=== PATIENT | male | born 1975 | race Caucasian/White ===

== ENCOUNTER → 2019-11-23 12:25 | Outpatient (ROUT) | payer BC, SELFPAY ==
[2019-11-23 12:51] LABS: BUN Creatinine Ratio 18.6 (6-22); Blood Urea Nitrogen 13 mg/dL (9-20); Carbon Dioxide 30 mmol/L (22-32); Chloride 97 mmol/L (98-107); Estimated Glomerular Filt Rate > 60.0 mL/min (>60); Glucose 146 mg/dL (70-100); HEMOLYSIS < 15 (0-50); Potassium 4.4 mmol/L (3.4-5.1); Sodium 137 mmol/L (137-145)
== END ==
PROVIDERS: PCP Internal Medicine; Visit Provider Internal Medicine
DX: E11.9 Type 2 diabetes mellitus without complications (principal)
CPT/HCPCS: 80048

== ENCOUNTER 2020-02-07 16:09 | Emergency (ER) | payer SELFPAY ==
[2020-02-07 16:17] VITALS: BP 156/83; PULSE 90; RESP 14; TEMP 36.3; O2SAT 97
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
--- NOTE | 2020-02-07 16:51 | ED.TRAUMA ---
HPI - Trauma <Taniya Ashby PA-C - Last Filed: 02/07/20 21:16> General Chief Complaint: Trauma Stated Complaint: FALL NO STOP BLEEDING Time Seen by Provider: 02/07/20 16:15 Source: patient Mode of arrival: Ambulatory History of Present Illness HPI narrative: Patient is a pale, obese 44-year-old with obvious bruising to his face around his eyes swollen nose, and a large blood clot protruding from his left nostril as well as some old bruising on his right arm. Presents the emergency department POV, brought in by his . Complained of continued nosebleed, after a fall last night at home. He states that he her while he is lying back slightly flat, he still feels like there is a little bit of blood going down his throat. He felt nauseous on the way to the emergency department in a vehicle, and felt a little nauseous earlier today as well. He fell last night at home when he was stepping up onto a step into their bedroom area. He denies any prodrome of dizziness, palpitations, feeling like he was going to pass out. He fell onto carpet over hardwood floor, hitting the center of his face including his mouth and nose. He claims he has no other injuries, and does not have pain anywhere else, he says he partially use his hands to catch herself but pretty much ?my face took all of the force?. He proceeded to go to bed, despite having an active nosebleed, his helped him with towels and they tried to stop the bleeding last night, however he woke up this morning and his bedsheets ?looked like a murder scene?. He states that he stayed in bed all afternoon because ?every time I sat up to drink water or do anything, I felt very dizzy?. His told him that if he was not feeling better and the bleeding has not stopped by 4:00 p.m. today that she was going to drive him to the emergency department. Patient is a poor historian, however he does note a history of diabetes. Patient reports he has been in his normal state of health recently and was fine until last night when he fell and sustained this injury with nosebleed. 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 He denies any C-spine pain, headaches, vision changes, he continued severe bleeding. MD complaint: fall, injury and other (nosebleed) Onset (ago): hour(s) (18) Loss of Consciousness: no Location: face (Nose, mouth, orbits) Severity: moderate Associated symptoms: nausea, weakness, dizziness (Since this morning after bleeding from his nose) and epistaxis Treatments prior to arrival: cold therapy, dressings and other (Holding pressure on his nose.) Related Data Home Medications Medication Instructions Recorded Confirmed carvedilol [Coreg] 25 mg PO BID #0 07/01/12 amlodipine 10 mg PO HS #0 08/04/16 aspirin 81 mg PO QDAY #30 tab 08/04/16 fluticasone propion-salmeterol 1 puff INH BID #14 dose 08/04/16 [Advair Diskus] lisinopril-hydrochlorothiazide 1 tab PO QDAY #0 tab 08/04/16 sildenafil [Viagra] 50 mg PO PRN PRN #0 tab 08/04/16 Previous Rx's Medication Instructions Recorded sitagliptin [Januvia] 100 mg PO QDAY #30 tab 08/06/16 cephalexin [Keflex] 500 mg PO QID 7 Days #28 cap NS 02/07/20 hydrocodone-acetaminophen [[place]] 1 tab PO Q6H PRN #10 tab NS 02/07/20 Allergies Allergy/AdvReac Type Severity Reaction Status Date / Time No Known Drug Allergies Allergy Verified 02/07/20 16:53 Review of Systems <Taniya Ashby PA-C - Last Filed: 02/07/20 21:16> Review of Systems ROS Unobtainable: All systems reviewed & are unremarkable except as noted in HPI and below Constitutional Constitutional: Reports as per HPI and Denies headache(s) Eyes Eyes: Denies blurry vision, Denies change in vision, Denies loss of vision and Denies eye pain ENT Ears, Nose, Mouth, and Throat: Reports as per HPI, Denies dental pain, Denies dysphagia, Reports dizziness, Denies ear discharge, Denies otalgia, Reports facial pain, Denies headache(s), Reports lip swelling, Reports nasal trauma and Denies neck pain Cardiovascular Cardiovascular: Reports system reviewed and no additional complaints, except as docu, Denies chest pain and Denies dyspnea Respiratory Respiratory: Reports system reviewed and no additional complaints, except as docu and Denies dyspnea Gastrointestinal Gastrointestinal: Reports system reviewed and no additional complaints, except as docu and Denies dysphagia Musculoskeletal Musculoskeletal: Reports system reviewed and no additional complaints, except as docu, Denies abnormal gait, Denies arthralgias, Denies joint swelling, Denies limited range of motion, Denies neck pain and Denies numbness Integumentary/Breasts Skin/Breast: Reports system reviewed and no additional complaints, except as docu Neurologic Neurologic: Denies abnormal gait, Reports dizziness, Denies headache(s), Denies loss of vision and Denies numbness Psychiatric Psychiatric: Reports system reviewed and no additional complaints, except as docu Hematologic/Lymphatic Hematologic/Lymphatic: Reports system reviewed and no additional complaints, except as docu Comments: Reports no known history of easy bleeding or bruising. Allergic/Immunologic Allergic/Immunologic: Reports lip swelling Patient History <Taniya Ashby PA-C - Last Filed: 02/07/20 21:16> Medical History (Updated 02/08/20 @ 00:46 by Zaida Sood RN) Acute anterior epistaxis (Acute) Diabetes (Acute) Fracture closed, nasal bone (Acute) Hypertension (Acute) Social History Smoking Status: Never smoker Smoking Status: Never smoker Substance Use Type: does not use Exam <DEMOND Motley Last Filed: 02/07/20 21:16> Initial Vital Signs Initial Vital Signs: Vital Signs Temperature 97.4 F L 02/07/20 16:17 Pulse Rate 90 02/07/20 16:17 Respiratory Rate 14 02/07/20 16:17 Blood Pressure 156/83 H 02/07/20 16:17 Pulse Oximetry 97 02/07/20 16:17 Const General: cooperative, No comfortable, in distress and ill appearing Nutritional Appearance: obese Orientation: Orientation [facility] Head: hematoma, laceration and raccoon eyes (mild periorbital ecchymosis bilaterally) Ears: hearing grossly normal bilaterally, external ears normal, TM's normal bilaterally and EAC's normal Nose: No external nose normal (swelling), No nares normal (large clot protruding from left nare), epistaxis, external nose abnormal, No foreign body in naris, mucous membranes and turbinates abnormal, nasal discharge and No TMJ nontender Face and sinus: sinuses nontender Mouth: No oral mucosae normal (interior lip mucosa superior and inferior with large blood blisters. ), lip normal, tongue normal, moist mucous membranes, mucous membranes abnormal, mouth trauma, oral mucosa abnormal, No tongue abnormal, No abnormal TMJ, No trismus and No restricted motion Teeth and gingiva: poor dentition Throat: posterior oropharynx normal (some blood visible in posterior pharynx) Eyes General: appearance normal, both eyes and all related structures Visual Rosa: normal visual rosa by confrontation Alignment and Position: alignment normal and position normal Periorbital: periorbital findings abnormal Eyelids: eyelids normal Conjunctivae: conjunctivae normal Sclera: sclerae normal Cornea: corneas normal Pupils: PERRL and pupil size (4) bilaterally Direct ophthalmoscopy: normal light reflex Neck Neck: normal visual inspection and full ROM Chest Chest: normal inspection of the chest and normal palpation of entire chest wall Resp Effort & Inspection: normal respiratory effort and able to speak in complete sentences Auscultation: clear to auscultation bilaterally and other (upper airway sounds referred) Cardio Rate: tachycardic Rhythm: regular rhythm Heart Sounds: S1 normal and S2 normal GI Inspection: normal to inspection and obesity Palpation: soft Auscultation: normal bowel sounds Back/Spine/Pelvis Cervical Spine: cervical ROM normal, No cervical muscular tenderness, No pain with cervical ROM, No cervical spasm, No cervical spinal tenderness and No step off deformity Thoracic/Lumbar Spine: thoracic and lumbar spine normal to inspection Skin General: ecchymosis (right forarm and right upper arm, old bruises) Lesions: no lesions and lesion noted Trauma: laceration (stellate laceration bridge of nose <5mm, closed) Hair: normal Nails: normal Neuro General: alert, awake, oriented x3, gait normal and moves all extremities Cognition: normal cognition Speech: speech normal Gait: normal gait Motor: muscle tone normal throughout Sensory Exam: no sensory deficits noted Extrem General: normal to inspection Right upper extremity: normal to inspection Left upper extremity: normal to inspection Right lower extremity: normal to inspection Left lower extremity: normal to inspection Psych Appearance: grossly normal Mental Status: mental status grossly normal <Molly Whitlock, DO - Last Filed: 02/08/20 07:18> Initial Vital Signs Initial Vital Signs: Vital Signs Temperature 97.4 F L 02/07/20 16:17 Pulse Rate 90 02/07/20 16:17 Respiratory Rate 14 02/07/20 16:17 Blood Pressure 156/83 H 02/07/20 16:17 Pulse Oximetry 97 02/07/20 16:17 Procedures <DEMOND Motley Last Filed: 02/07/20 21:16> Epistaxis Control Time Out Performed: Yes Nostril: left and bilateral Nose Prepped With: lidocaine and oxymetazoline Direct Inspection: yes Clots Removed by: suction and manually Cautery Used: none Device Inserted: nasal tampon Device Size: 4 Patient Tolerated Procedure: well and no complications Complications: continued epistaxis (Continued epistaxis after placement of the initial) on the affected left side, as well as extrusion of the rhino rocket. To new rhino rockets were placed bilaterally after the initial 1 was removed, per recommendation of ENT.) and pain Scores <DEMOND Motley Last Filed: 02/07/20 21:16> GCS Arley coma scale eye opening: Spontaneous [place] coma scale verbal response: Orientated [place] coma scale motor response: Obey commands Arley coma scale total score: 15 Nexus Score for C-Spine Focal Neurologic deficit present: No Midline spinal tenderness present: No Altered level of conciousness present: No Intoxication present: No Distracting Injury Present: Yes Nexus Criteria for C-spine: 1 Course <DEMOND Motley Last Filed: 02/07/20 21:16> Orders Ordered: Discontinued Medications Hydrocodone Bitart/Acetaminophen ([place] 10/325) 1 tab PO NOW ONE Stop: 02/07/20 18:43 Hydrocodone Bitart/Acetaminophen ([place] 5/325) 2 tab PO NOW ONE Stop: 02/07/20 18:57 Last Admin: 02/07/20 19:13 Dose: 2 tab Documented by: AARON Hydrocodone Bitart/Acetaminophen (Vicodin 5/325 Prepack) 1 bottle MISC SEEINSTR ONE Stop: 02/07/20 20:45 Last Admin: 02/07/20 21:12 Dose: 1 bottle Documented by: JORDEN Cefazolin Sodium (Keflex 250 Mg Prepack) 1 bottle MISC SEEINSTR ONE Stop: 02/07/20 20:45 Last Admin: 02/07/20 21:12 Dose: 500 mg Documented by: JORDEN Cephalexin HCl (Keflex) 500 mg PO NOW ONE Stop: 02/07/20 20:04 Last Admin: 02/07/20 20:19 Dose: 500 mg Documented by: JORDEN Diphtheria/Tetanus/Acell Pertussis (Adacel) 0.5 ml IM .ONCE ONE Stop: 02/07/20 16:56 Last Admin: 02/07/20 16:57 Dose: 0.5 ml Documented by: DAVID Sodium Chloride (Normal Saline 0.9%) 1,000 mls @ 1,000 mls/hr IV BOLUS ONE Stop: 02/07/20 20:44 Last Infusion: 02/07/20 21:12 Dose: 0 mls/hr Documented by: Admin: 02/07/20 19:56 Dose: 1,000 mls/hr Documented by: JORDEN Lidocaine/Sodium Bicarbonate (Buffered Lidocaine 10 Ml Syr) 10 ml INJ NOW ONE Stop: 02/07/20 17:16 Last Admin: 02/07/20 18:08 Dose: 10 ml Documented by: AARON Lidocaine/Sodium Bicarbonate (Buffered Lidocaine 10 Ml Syr) 10 ml INJ NOW ONE Stop: 02/07/20 18:25 Last Admin: 02/07/20 18:37 Dose: 10 ml Documented by: JULIAN Ondansetron HCl (Zofran Odt Prepack) 1 bottle [facility] [place], [place] SEEINSTR ONE Stop: 02/07/20 20:45 Last Admin: 02/07/20 21:12 Dose: 1 bottle Documented by: JORDEN Oxymetazoline HCl (Afrin) 2 sprays NASAL NOW ONE Stop: 02/07/20 17:13 Last Admin: 02/07/20 18:07 Dose: 2 sprays Documented by: AARON Tranexamic Acid (Cyklokapron) 1,000 mg MM NOW ONE Stop: 02/07/20 17:13 Last Admin: 02/07/20 18:08 Dose: 1,000 mg Documented by: AARON Tranexamic Acid (Cyklokapron) 1,000 mg MM NOW ONE Stop: 02/07/20 18:25 Last Admin: 02/07/20 18:37 Dose: 1,000 mg Documented by: JULIAN Reevaluation(s) Reevaluation #1: Patient re-evaluated he still has about 7/10 pain in his face. Based on minimal displacement fractures of the septum and nasal bone on the left, felt it was safe and appropriate to remove the blood clot and use Afrin as well as a rhino rocket infused with Tx very and lidocaine to attempt to get better control of his continued slow bleeding. Large 5cm blood clot removed with manual traction and suction device, without significant bleeding. 4 sprays of Afrin placed in the left nare. 4.5 cm rhinorocket anterior infused with lidocaine and 500mg TXA prior to insertion. Rhinorocket placed by Dr. Whitlock, See procedure note for further. Time: 18:01 Reevaluation #3: On re-evaluation the rhino rocket is now beginning to come out of his nose to the point where it will have to be placed again. He continues to have a slow light stream of blood from the left nare after placement. Spoke with Dr. bowens ENT, who advises that because he does have a septal fracture is possible that some of his bleeding is due to this fracture and it may be advisable to place a rhino rockets bilaterally to control the bleeding plan to do so, with additional TXA and lidocaine Time: 18:27 Additional Reevaluation(s): See procedure note for placement of bilateral rhino rockets. Patient is still reporting pain, he says it is slightly worse now he has the bilateral rhino rockets in place, have ordered [place] for him, he says he feels he is able to swallow just fine. I plan to discharge him with this prescription as well. At this point in time he states he has no sensation of blood running down the back of his throat anymore, and there is no bleeding continuing anteriorly to come out of either nare. The left near had the original rhino rocket removed after deflating the balloon as it was nearly extruded on its own, a new rhino rocket was placed with inflation to 12 cc of air of the cuff and is staying in place on the left the affected side with the epistaxis. This was staffed in the remaining TXA and lidocaine solution from the previous placement and was placed by myself. The right nare also had placement of a anterior 4.5 cm rhino rocket per the suggestion of ENT, this was also infused with approximately 250 mg at BT x-ray mixed with 3-4 mL of lidocaine, this was placed by nurse practitioner Molly Valenzuela. It also appears to have good placement and there is no bleeding of the right naris. Consultations Consultation #1: Spoke with Dr. Bowens, ENT who advises patient will likely need bilateral rhino rockets given he has a septal mildly displaced fracture, which may be contributing to his continued slow bleeding. He also advised a rhino rocket should remain in place for at least 72 hours, and he will follow-up with the patient likely on this . Time: 18:18 Vital Signs Vital signs: Vital Signs - 8 hr 02/07/20 16:17 02/07/20 18:47 02/07/20 19:57 Temperature 97.4 F L Pulse Rate 90 112 H 117 H Respiratory Rate 14 23 18 Blood Pressure 156/83 H Blood Pressure [Left Arm] 129/76 129/76 Pulse Oximetry 97 97 99 <Molly Whitlock, DO - Last Filed: 02/08/20 07:18> Orders Ordered: Discontinued Medications Hydrocodone Bitart/Acetaminophen ([place] 10/325) 1 tab PO NOW ONE Stop: 02/07/20 18:43 Hydrocodone Bitart/Acetaminophen ([place] 5/325) 2 tab PO NOW ONE Stop: 02/07/20 18:57 Last Admin: 02/07/20 19:13 Dose: 2 tab Documented by: BTONER Hydrocodone Bitart/Acetaminophen (Vicodin 5/325 Prepack) 1 bottle MISC SEEINSTR ONE Stop: 02/07/20 20:45 Last Admin: 02/07/20 21:12 Dose: 1 bottle Documented by: JORDEN Cefazolin Sodium (Keflex 250 Mg Prepack) 1 bottle MISC SEEINSTR ONE Stop: 02/07/20 20:45 Last Admin: 02/07/20 21:12 Dose: 500 mg Documented by: JORDEN Cephalexin HCl (Keflex) 500 mg PO NOW ONE Stop: 02/07/20 20:04 Last Admin: 02/07/20 20:19 Dose: 500 mg Documented by: JORDEN Diphtheria/Tetanus/Acell Pertussis (Adacel) 0.5 ml IM .ONCE ONE Stop: 02/07/20 16:56 Last Admin: 02/07/20 16:57 Dose: 0.5 ml Documented by: DAVID Sodium Chloride (Normal Saline 0.9%) 1,000 mls @ 1,000 mls/hr IV BOLUS ONE Stop: 02/07/20 20:44 Last Infusion: 02/07/20 21:12 Dose: 0 mls/hr Documented by: Admin: 02/07/20 19:56 Dose: 1,000 mls/hr Documented by: JORDEN Lidocaine/Sodium Bicarbonate (Buffered Lidocaine 10 Ml Syr) 10 ml INJ NOW ONE Stop: 02/07/20 17:16 Last Admin: 02/07/20 18:08 Dose: 10 ml Documented by: AARON Lidocaine/Sodium Bicarbonate (Buffered Lidocaine 10 Ml Syr) 10 ml INJ NOW ONE Stop: 02/07/20 18:25 Last Admin: 02/07/20 18:37 Dose: 10 ml Documented by: JULIAN Ondansetron HCl (Zofran Odt Prepack) 1 bottle MISC SEEINSTR ONE Stop: 02/07/20 20:45 Last Admin: 02/07/20 21:12 Dose: 1 bottle Documented by: JORDEN Oxymetazoline HCl (Afrin) 2 sprays NASAL NOW ONE Stop: 02/07/20 17:13 Last Admin: 02/07/20 18:07 Dose: 2 sprays Documented by: AARON Tranexamic Acid (Cyklokapron) 1,000 mg MM NOW ONE Stop: 02/07/20 17:13 Last Admin: 02/07/20 18:08 Dose: 1,000 mg Documented by: AARON Tranexamic Acid (Cyklokapron) 1,000 mg MM NOW ONE Stop: 02/07/20 18:25 Last Admin: 02/07/20 18:37 Dose: 1,000 mg Documented by: JULIAN Vital Signs Vital signs: Vital Signs - 8 hr 02/07/20 16:17 02/07/20 18:47 02/07/20 19:57 Temperature 97.4 F L Pulse Rate 90 112 H 117 H Respiratory Rate 14 23 18 Blood Pressure 156/83 H Blood Pressure [Left Arm] 129/76 129/76 Pulse Oximetry 97 97 99 MDM - Trauma <Taniya Symone, PA-C - Last Filed: 02/07/20 21:16> Lab Data Attestation: I reviewed the patient's lab results. Lab results narrative: H&H is 10.6 and 32.4. He has an elevated white count to 14.4 elevated glucose to 242, Result diagrams: 02/07/20 19:38 02/07/20 16:35 Labs: Lab Results 02/07/20 02/07/20 02/07/20 Range/Units 16:35 16:35 16:35 WBC 14.4 H (4.5-11.0) X10^3/uL RBC 3.03 L (4.5-5.9) X10^6/uL Hgb 10.6 L (13.5-17.5) g/dL Hct 32.4 L (41-53) % MCV 106.9 H (80-100) fL MCH 34.9 H (26-34) PG MCHC 32.7 (30-36) % RDW 17.4 H (11.6-14.8) % Plt Count 260 (150-400) X10^3/uL Neut % (Auto) 75.1 H (50-75) % Lymph % (Auto) 14.1 L (25-40) % [place] % (Auto) 9.4 (3-14) % Eos % (Auto) 0.1 L (2-4) % Baso % (Auto) 1.3 (0-2) % Neut # (Auto) 45500 H (6766-0341) /uL Lymph # (Auto) 2000 (1610-6276) /uL [place] # (Auto) 1300 H (0-900) /uL Eos # (Auto) 0 (0-450) /uL Baso # (Auto) 200 H (0-100) /uL APTT 30 (26.4-36.2) SECONDS Sodium 136 L (137-145) mmol/L Potassium 4.6 (3.4-5.1) mmol/L Chloride 100 (98-107) mmol/L Carbon Dioxide 25 (22-32) mmol/L BUN 38 H (9-20) mg/dL Creatinine 0.73 (0.66-1.25) mg/dL Estimated GFR > 60.0 (>60) mL/min BUN/Creatinine Ratio 52.1 H (6-22) Glucose 242 H (70-100) mg/dL Calcium 8.9 (8.4-10.2) mg/dL Total Bilirubin 0.8 (0.2-1.3) mg/dL AST 70 H (17-59) IU/L ALT 115 H (<50) IU/L Alkaline Phosphatase 65 (38-126) U/L Total Protein 7.1 (6.3-8.2) g/dL Albumin 3.5 (3.5-5.0) g/dL Globulin 3.6 (1.7-4.1) g/dL Albumin/Globulin Ratio 1.0 (1.0-2.8) Ethyl Alcohol < 10 ( - 10) mg/dL Blood Type Antibody Screen 02/07/20 02/07/20 Range/Units 16:35 19:38 WBC 14.6 H (4.5-11.0) X10^3/uL RBC 2.90 L (4.5-5.9) X10^6/uL Hgb 10.2 L (13.5-17.5) g/dL Hct 30.8 L (41-53) % MCV 106.5 H (80-100) fL MCH 35.1 H (26-34) PG MCHC 32.9 (30-36) % RDW 17.0 H (11.6-14.8) % Plt Count 247 (150-400) X10^3/uL Neut % (Auto) 77.4 H (50-75) % Lymph % (Auto) 14.6 L (25-40) % [place] % (Auto) 7.6 (3-14) % Eos % (Auto) 0.1 L (2-4) % Baso % (Auto) 0.3 (0-2) % Neut # (Auto) 18774 H (8857-3731) /uL Lymph # (Auto) 2100 (5528-9107) /uL [place] # (Auto) 1100 H (0-900) /uL Eos # (Auto) 0 (0-450) /uL Baso # (Auto) 0 (0-100) /uL APTT (26.4-36.2) SECONDS Sodium (137-145) mmol/L Potassium (3.4-5.1) mmol/L Chloride (98-107) mmol/L Carbon Dioxide (22-32) mmol/L BUN (9-20) mg/dL Creatinine (0.66-1.25) mg/dL Estimated GFR (>60) mL/min BUN/Creatinine Ratio (6-22) Glucose (70-100) mg/dL Calcium (8.4-10.2) mg/dL Total Bilirubin (0.2-1.3) mg/dL AST (17-59) IU/L ALT (<50) IU/L Alkaline Phosphatase (38-126) U/L Total Protein (6.3-8.2) g/dL Albumin (3.5-5.0) g/dL Globulin (1.7-4.1) g/dL Albumin/Globulin Ratio (1.0-2.8) Ethyl Alcohol ( - 10) mg/dL Blood Type O Positive Antibody Screen Negative Imaging Data CT scan - head: Radiologist's Impression: [address] [address] [address] Scan Report Signed Patient: Leonidas Oreilly JMR#: [id number] : 1975Acct:[id number] Age/Sex: 44 / MDate of Service: 02/07/20 Loc: ED Accession Number: [id number] Procedure: CT head/brain wo con Ordering Provider: Taniya Ashby P.A-C PROCEDURE: CT HEAD/BRAIN WO CON INDICATIONS: Trauma TECHNIQUE: Noncontrast 4.5 mm thick angled axial sections acquired from the foramen magnum to the vertex, with coronal and sagittal reformats. For radiation dose reduction, the following was used: automated exposure control, adjustment of mA and/or kV according to patient size. COMPARISON: None. FINDINGS: Image quality: Excellent. CSF spaces: Basal cisterns are patent. No extra-axial fluid collections. Ventricles are normal in size and shape. Brain: No midline shift. No intracranial masses or hemorrhage. [place]-white matter interface is normal. Skull and face: Calvarium and visualized facial bones are intact, without suspicious lesions. Sinuses: There is likely displaced nasal bone fracture which is only partially characterized. High density fluid and gas is present within the bilateral maxillary sinuses and the ethmoid air cells. Fluid is layered within the sphenoid sinuses. The frontal sinuses and mastoid air cells are clear. IMPRESSION: 1. No acute intracranial finding. 2. Probable nasal bone fracture with high density fluid and gas within the paranasal sinuses. Findings suggest the presence of blood within the paranasal sinuses. Dictated by: Angelia Seay M.D. on 02/07/2020 at 16:57 Approved by: Angelia Seay M.D. on 02/07/2020 at 16:59 CT Cervical spine w/o contrast: Radiologist's Impression: [address] [address] [address] Scan Report Signed Patient: Leonidas Oreilly JMR#: [id number] : 1975Acct:[id number] Age/Sex: 44 / MDate of Service: 02/07/20 Loc: ED Accession Number: [id number] Procedure: CT cervical spine wo con Ordering Provider: Taniya Ashby P.A-C PROCEDURE: CT CERVICAL SPINE WO CON INDICATIONS: Trauma TECHNIQUE: Noncontrast 3 mm thick sections acquired from the skull base to the T4 level. Sagittal and coronal reformats were then constructed. For radiation dose reduction, the following was used: automated exposure control, adjustment of mA and/or kV according to patient size. COMPARISON: None. FINDINGS: Image quality: Excellent. Bones: No fractures or dislocations. Visualized superior ribs are intact. Fluid and gas is present within the nasopharynx and the sphenoid sinuses. Soft tissues: Prevertebral soft tissues are normal in thickness. No paravertebral hematomas. No apical pneumothoraces. IMPRESSION: 1. No acute cervical spine injury. 2. Fluid and gas within the paranasal sinuses suggesting the presence of maxillofacial trauma. Dictated by: Angelia Seay M.D. on 02/07/2020 at 17:00 Approved by: Angelia Seay M.D. on 02/07/2020 at 17:[address]: Attestation: I personally reviewed and interpreted this imaging study as follows: My Impression: Agree with radiologist's interpretation, mildly displaced nasal bone fracture on the left and mildly displaced nasal septum fracture Radiologist's Impression: [address] [address] [address] Scan Report Signed Patient: Leonidas Oreilly JMR#: [id number] : 1975Acct:[id number] Age/Sex: 44 / MDate of Service: 02/07/20 Loc: ED Accession Number: [id number] Procedure: CT facial bones wo con Ordering Provider: Taniya Ashby P.A-C PROCEDURE: CT FACIAL BONES WO CON INDICATIONS: GROUND LEVEL FALL YESTERDAY, FACE HURTS TECHNIQUE: Noncontrast 2.5 mm thick axial images acquired from the mandible through the frontal sinuses, with coronal and sagittal reformatting. For radiation dose reduction, the following was used: automated exposure control, adjustment of mA and/or kV according to patient size. COMPARISON: None. FINDINGS: Image quality: Motion artifact somewhat limits evaluation. Bones and teeth: There is likely a minimally displaced left nasal bone fracture. There is a minimally displaced fracture of the nasal septum (series 10/image 80). The orbital nesbitt are intact. Visualized portions of the mandible demonstrate no fractures or subluxation. Zygomatic arches are intact. Pterygoid plates are intact. Visualized portions of the skull base and auditory canals are intact. Sinuses: High-density fluid and gas is present within the bilateral maxillary sinuses, the ethmoid air cells, the nasopharynx, and the sphenoid sinuses. Trace fluid and gas is also present within the frontal sinuses. The visualized mastoid air cells are clear. Soft tissues: No edema, masses, or fluid collections. No enlarged lymph nodes. No soft tissue lacerations or debris. Vascular: Visualized vascular structures appear normal in the absence of contrast. Bony vascular foramina and canals are intact. IMPRESSION: 1. Displaced nasal bone fracture and nasal septum fracture with probable blood within the paranasal sinuses as described above. Dictated by: Angelia Seay M.D. on 02/07/2020 at 17:02 Approved by: Angelia Seay M.D. on 02/07/2020 at 17:06 [facility] Narrative Medical decision making narrative: This is an obese 44-year-old male with a history of diabetes, who presents with epistaxis that began last night still uncontrolled this afternoon, 2nd to a fall. Imaging of C-spine, facial bones, and head revealed a moderately displaced fracture of the left nasal bone, and a mild fracture of the nasal septum. No other no other injuries were found on exam except for some old bruising on his right arm. H&H as above, recheck dropped 0.4 points for hemoglobin. He was given normal saline bolus in the ED prior to discharge. Bleeding appeared to be well controlled after placement of bilateral anterior nasal packing with afrin and TXA. Patient will follow-up with ENT in the next 2-3 days for removal of the packing and re-evaluation. He agrees with this plan, and we have reviewed emergency return precautions. <Molly Myke Whitlock, DO - Last Filed: 02/08/20 07:18> Lab Data Attestation: I reviewed the patient's lab results. Labs: Lab Results 02/07/20 02/07/20 02/07/20 Range/Units 16:35 16:35 16:35 WBC 14.4 H (4.5-11.0) X10^3/uL RBC 3.03 L (4.5-5.9) X10^6/uL Hgb 10.6 L (13.5-17.5) g/dL Hct 32.4 L (41-53) % MCV 106.9 H (80-100) fL MCH 34.9 H (26-34) PG MCHC 32.7 (30-36) % RDW 17.4 H (11.6-14.8) % Plt Count 260 (150-400) X10^3/uL Neut % (Auto) 75.1 H (50-75) % Lymph % (Auto) 14.1 L (25-40) % [place] % (Auto) 9.4 (3-14) % Eos % (Auto) 0.1 L (2-4) % Baso % (Auto) 1.3 (0-2) % Neut # (Auto) 20920 H (2716-8480) /uL Lymph # (Auto) 2000 (7022-1297) /uL [place] # (Auto) 1300 H (0-900) /uL Eos # (Auto) 0 (0-450) /uL Baso # (Auto) 200 H (0-100) /uL APTT 30 (26.4-36.2) SECONDS Sodium 136 L (137-145) mmol/L Potassium 4.6 (3.4-5.1) mmol/L Chloride 100 (98-107) mmol/L Carbon Dioxide 25 (22-32) mmol/L BUN 38 H (9-20) mg/dL Creatinine 0.73 (0.66-1.25) mg/dL Estimated GFR > 60.0 (>60) mL/min BUN/Creatinine Ratio 52.1 H (6-22) Glucose 242 H (70-100) mg/dL Calcium 8.9 (8.4-10.2) mg/dL Total Bilirubin 0.8 (0.2-1.3) mg/dL AST 70 H (17-59) IU/L ALT 115 H (<50) IU/L Alkaline Phosphatase 65 (38-126) U/L Total Protein 7.1 (6.3-8.2) g/dL Albumin 3.5 (3.5-5.0) g/dL Globulin 3.6 (1.7-4.1) g/dL Albumin/Globulin Ratio 1.0 (1.0-2.8) Ethyl Alcohol < 10 ( - 10) mg/dL Blood Type Antibody Screen 02/07/20 02/07/20 Range/Units 16:35 19:38 WBC 14.6 H (4.5-11.0) X10^3/uL RBC 2.90 L (4.5-5.9) X10^6/uL Hgb 10.2 L (13.5-17.5) g/dL Hct 30.8 L (41-53) % MCV 106.5 H (80-100) fL MCH 35.1 H (26-34) PG MCHC 32.9 (30-36) % RDW 17.0 H (11.6-14.8) % Plt Count 247 (150-400) X10^3/uL Neut % (Auto) 77.4 H (50-75) % Lymph % (Auto) 14.6 L (25-40) % [place] % (Auto) 7.6 (3-14) % Eos % (Auto) 0.1 L (2-4) % Baso % (Auto) 0.3 (0-2) % Neut # (Auto) 83312 H (0034-6463) /uL Lymph # (Auto) 2100 (3189-1464) /uL [place] # (Auto) 1100 H (0-900) /uL Eos # (Auto) 0 (0-450) /uL Baso # (Auto) 0 (0-100) /uL APTT (26.4-36.2) SECONDS Sodium (137-145) mmol/L Potassium (3.4-5.1) mmol/L Chloride (98-107) mmol/L Carbon Dioxide (22-32) mmol/L BUN (9-20) mg/dL Creatinine (0.66-1.25) mg/dL Estimated GFR (>60) mL/min BUN/Creatinine Ratio (6-22) Glucose (70-100) mg/dL Calcium (8.4-10.2) mg/dL Total Bilirubin (0.2-1.3) mg/dL AST (17-59) IU/L ALT (<50) IU/L Alkaline Phosphatase (38-126) U/L Total Protein (6.3-8.2) g/dL Albumin (3.5-5.0) g/dL Globulin (1.7-4.1) g/dL Albumin/Globulin Ratio (1.0-2.8) Ethyl Alcohol ( - 10) mg/dL Blood Type O Positive Antibody Screen Negative MDM Narrative Medical decision making narrative: Patient was also seen by myself and assisted with placement of initial rhinorocket for patient, agree with HPI and exam findings. Imaging was reviewed. Patient C-spine has been cleared. Patient H/H has been stable with minimal drop. ENT recommendations included and plan for antibiotics for home as rhinorockets will be in place for several days. Discharge Plan Departure Patient Disposition: Home Clinical Impression: Acute anterior epistaxis, Fall (on) (from) other stairs and steps, initial encounter Fracture closed, nasal bone Qualifiers: Encounter type: initial encounter Qualified Code(s): S02.2XXA - Fracture of nasal bones, initial encounter for closed fracture Closed fracture of nasal septum Qualifiers: Encounter type: initial encounter Qualified Code(s): S02.2XXA - Fracture of nasal bones, initial encounter for closed fracture Discharge Date/Time: 02/07/20 21:36 Instructions: DI for Nose Fracture, DI for Trauma Activity Restrictions/Additional Instructions: *You have been diagnosed with acute anterior epistaxis as well as a slightly displaced fracture of your nasal bone on the left, as well as nondisplaced fracture of your septum which is a bone in the center of the nose. A placed nasal packing with medication that helps control bleeding on both sides because of your fracture in the middle as well as her uncontrolled bleeding earlier today. This needs to remain in place for 72 hours, or until you are seen by the senior design engineering specialist. You should call the senior design engineering specialist Dr. bowens in the morning his office will be open at 8:00 a.m. and you can schedule an appointment to be seen in the next few days with him. Is very important to be re-evaluated and have these removed by a specialist. Please see below for instructions regarding when to return to the emergency department if needed. [facility] *What to do: * do not blow your nose, stick your finger in her nose, or disturb nose for the next 72 hr. If you must sneeze please sneeze out your mouth like we talked about *Follow up with your primary care provider or ENT doctor in 2-3 days, call for an appointment. Let them know you were seen in the Emergency Department and that we ask that you be seen in follow up. Please continue your home medications as prescribed. *Return to ER if you should have any new, worsening or concerning symptoms, these include continued bleeding, dizziness, fainting, loss of 1 or more of your nasal packing devices. * if you are bleeding starts again at home please place a portion of a cotton ball in your nostril and squirt some of the Afrin you were given in your nose. Apply the nose clamp and uses a watch or o'clock to time yourself for 15 min. At the end 15 min recheck for bleeding, if you continue to bleed please repeat the process for another 15 min. If at the end of 30 min you still have bleeding you should return to the emergency department Prescriptions: New hydrocodone-acetaminophen [[place]] 5-325 mg tablet 1 tab PO Q6H PRN (Reason: pain) Qty: 10 RF: 0 cephalexin [Keflex] 500 mg capsule 500 mg PO QID 7 Days Qty: 28 RF: 0 No Action carvedilol [Coreg] 25 MG tablet 25 mg PO BID Qty: 0 RF: 0 aspirin 81 MG tablet,delayed release (DR/EC) 81 mg PO QDAY Qty: 30 RF: 0 amlodipine 10 MG tablet 10 mg PO HS Qty: 0 RF: 0 fluticasone propion-salmeterol [Advair Diskus] 250 MCG/50 MCG blister with device 1 puff INH BID Qty: 14 RF: 0 sildenafil [Viagra] 50 MG tablet 50 mg PO PRN PRNQty: 0 RF: 0 lisinopril-hydrochlorothiazide 20 MG/25 MG tablet 1 tab PO QDAY Qty: 0 RF: 0 sitagliptin [Januvia] 100 MG tablet 100 mg PO QDAY Qty: 30 RF: 0 Referrals: Kyler Bowens MD [Physician] - Gonzalez Britt MD [Primary Care Provider] - Stand Alone Forms: Work Release Note
[2020-02-07 16:53] LABS: Add Manual Diff / Slide Review NO; Basophils Absolute Auto 200 /uL (0-100); Basophils Percent Auto 1.3 % (0-2); Eosinophils Absolute Auto 0 /uL (0-450); Eosinophils Percent Auto 0.1 % (2-4); Hematocrit 32.4 % (41-53); Hemoglobin 10.6 g/dL (13.5-17.5); Lymphocytes Absolute Auto 2000 /uL (1100-4500); Lymphocytes Percent Auto 14.1 % (25-40); Mean Corpuscular HGB Conc 32.7 % (30-36); Mean Corpuscular Hemoglobin 34.9 PG (26-34); Mean Corpuscular Volume 106.9 fL (80-100); Monocytes Absolute Auto 1300 /uL (0-900); Monocytes Percent Auto 9.4 % (3-14); Neutrophils Absolute Auto 10800 /uL (1500-7000); Neutrophils Percent Auto 75.1 % (50-75); Platelet Count 260 X10^3/uL (150-400); Red Blood Cell Count 3.03 X10^6/uL (4.5-5.9); Red Cell Distribution Width 17.4 % (11.6-14.8); White Blood Cell Count 14.4 X10^3/uL (4.5-11.0)
[2020-02-07] MEDS: TET,DIPH,PERTUSS(ACELL),VAC/PF 0.5 ML SYRINGE IM (16:57)
[2020-02-07 17:05] LABS: PTT Partial Thromboplastin Tim 30 SECONDS (26.4-36.2)
[2020-02-07 17:06] LABS: Alanine Aminotransferase 115 IU/L (<50); Albumin 3.5 g/dL (3.5-5.0); Alkaline Phosphatase 65 U/L (38-126); Aspartate Aminotransferase 70 IU/L (17-59); BUN Creatinine Ratio 52.1 (6-22); Bilirubin Total 0.8 mg/dL (0.2-1.3); Blood Urea Nitrogen 38 mg/dL (9-20); Calcium 8.9 mg/dL (8.4-10.2); Carbon Dioxide 25 mmol/L (22-32); Chloride 100 mmol/L (98-107); Estimated Glomerular Filt Rate > 60.0 mL/min (>60); Ethanol (ETOH) < 10 mg/dL; Globulin 3.6 g/dL (1.7-4.1); Glucose 242 mg/dL (70-100); HEMOLYSIS 15 (0-50); Potassium 4.6 mmol/L (3.4-5.1); Sodium 136 mmol/L (137-145); Total Protein 7.1 g/dL (6.3-8.2)
[2020-02-07] MEDS: OXYMETAZOLINE NASAL SPRAY 30 ML 2 SPRAYS NASAL (18:07)
[2020-02-07] MEDS: TRANEXAMIC ACID 1,000 MG VIAL 1000 MG MM ×2 (18:08→18:37)
[2020-02-07] MEDS: LIDO 1%/SOD BICARB 8.4% (10ML) 10 ML SYRINGE INJ ×2 (18:08→18:37)
[2020-02-07 18:47] VITALS: BP 129/76; PULSE 112; RESP 23; O2SAT 97
[2020-02-07] MEDS: HYDROCODONE/ACET 5/325 TABLET 2 TAB PO (19:13)
[2020-02-07 19:42] LABS: Add Manual Diff / Slide Review NO; Basophils Absolute Auto 0 /uL (0-100); Basophils Percent Auto 0.3 % (0-2); Eosinophils Absolute Auto 0 /uL (0-450); Eosinophils Percent Auto 0.1 % (2-4); Hematocrit 30.8 % (41-53); Hemoglobin 10.2 g/dL (13.5-17.5); Lymphocytes Absolute Auto 2100 /uL (1100-4500); Lymphocytes Percent Auto 14.6 % (25-40); Mean Corpuscular HGB Conc 32.9 % (30-36); Mean Corpuscular Hemoglobin 35.1 PG (26-34); Mean Corpuscular Volume 106.5 fL (80-100); Monocytes Absolute Auto 1100 /uL (0-900); Monocytes Percent Auto 7.6 % (3-14); Neutrophils Absolute Auto 11300 /uL (1500-7000); Neutrophils Percent Auto 77.4 % (50-75); Platelet Count 247 X10^3/uL (150-400); White Blood Cell Count 14.6 X10^3/uL (4.5-11.0)
[2020-02-07] MEDS: SODIUM CHLORIDE 0.9% 1,000 ML 1000 ML IV (19:56)
[2020-02-07 19:57] VITALS: BP 129/76; PULSE 117; RESP 18; O2SAT 99
[2020-02-07] MEDS: cephALEXin 250 MG CAPSULE 500 MG PO (20:19)
[2020-02-07] MEDS: cephALEXin 250 MG PREPACK 1 BOTTLE MISC (21:12)
[2020-02-07] MEDS: HYDROCODONE/ACET 5/325 PREPACK 1 BOTTLE MISC (21:12)
[2020-02-07] MEDS: ONDANSETRON 4 MG ODT PREPACK 1 BOTTLE MISC (21:12)
[2020-02-07 21:34] VITALS: BP 122/81; PULSE 101; RESP 18; O2SAT 100
== END 2020-02-07 21:36 | disposition home or self-care (01) ==
PROVIDERS: Emergency Provider Student in an Organized Health Care Education/Training Program; PCP Internal Medicine
DX: R04.0 Epistaxis (principal); S02.2XXA Fracture of nasal bones, initial encounter for closed fracture; Z23 Encounter for immunization; E11.9 Type 2 diabetes mellitus without complications; I10 Essential (primary) hypertension; W10.9XXA Fall (on) (from) unspecified stairs and steps, initial encounter
CPT/HCPCS: 30901; 36415; 70450; 70486; 72125; 80053; 80320; 85025; 85730; 86850; 86900; 86901; 90471; 96360; 99285; 90715

== ENCOUNTER 2020-02-07 23:35 | Emergency (ER) | payer SELFPAY ==
[2020-02-07 23:41] VITALS: BP 129/86; PULSE 124; RESP 16; TEMP 36.2; O2SAT 99; BMI 42.5
--- NOTE | 2020-02-07 23:48 | PC.NURSE ---
patient just here for treatment of same after direct trauma to face from fall. He returns stating he has no more bleeding but the rocket has fallen out of his left nostril. Patient states he wants a new one placed. Provider aware and at bedside.
--- NOTE | 2020-02-07 23:59 | ED.EPISTAXIS ---
HPI - Epistaxis General Chief complaint: Nasal Problem Stated complaint: nose bleed/plug came out of nose Time Seen by Provider: 02/07/20 23:59 Source: patient Mode of arrival: Wheelchair Limitations: no limitations History of Present Illness HPI Narrative: The patient was seen earlier today after a fall at home. He fell flat on his face in his house, landing on carpet. He developed severe epistaxis is uncontrollable home. He was seen here, head CT was done suggesting nasal fracture. Blood is noted in his paranasal sinuses. There is no skull fracture or obvious brain injury. He was bleeding from both nares. Bilateral packings were placed. Since going home the left packing fell out, he replaced it. If fell again on the way to the ER. The patient has a headache. He has no current active bleeding. He is on no blood thinners. He has no bleeding from ears, or mouth. He has no neck pain. He is alert and oriented Related Data Home Medications Medication Instructions Recorded Confirmed carvedilol [Coreg] 25 mg PO BID #0 07/01/12 amlodipine 10 mg PO HS #0 08/04/16 aspirin 81 mg PO QDAY #30 tab 08/04/16 fluticasone propion-salmeterol 1 puff INH BID #14 dose 08/04/16 [Advair Diskus] lisinopril-hydrochlorothiazide 1 tab PO QDAY #0 tab 08/04/16 sildenafil [Viagra] 50 mg PO PRN PRN #0 tab 08/04/16 Previous Rx's Medication Instructions Recorded sitagliptin [Januvia] 100 mg PO QDAY #30 tab 08/06/16 cephalexin [Keflex] 500 mg PO QID 7 Days #28 cap NS 02/07/20 hydrocodone-acetaminophen [[place]] 1 tab PO Q6H PRN #10 tab NS 02/07/20 Allergies Allergy/AdvReac Type Severity Reaction Status Date / Time No Known Drug Allergies Allergy Verified 02/07/20 16:53 Review of Systems Review of Systems ROS Unobtainable: All systems reviewed & are unremarkable except as noted in HPI and below Constitutional Constitutional: Denies chills, Denies fever(s), Denies lethargy and Denies weakness Eyes Eyes: Denies change in vision, Denies eye discharge, Denies irritation and Denies loss of vision Comments: No bleeding from the lacrimal ducts ENT Ears, Nose, Mouth, and Throat: Denies change in voice and Denies neck pain Comments: Bilateral epistaxis earlier. Cardiovascular Cardiovascular: Denies chest pain Respiratory Respiratory: Denies cough and Denies hemoptysis Musculoskeletal Musculoskeletal: Denies neck pain Neurologic Neurologic: Denies loss of vision and Denies weakness Hematologic/Lymphatic Hematologic/Lymphatic: Denies easy bleeding and Denies easy bruising Patient History Medical History (Updated 02/08/20 @ 00:11 by Janes Welch MD) Acute anterior epistaxis (Acute) Diabetes (Acute) Fracture closed, nasal bone (Acute) Hypertension (Acute) Social History Smoking Status: Never smoker Smoking Status: Never smoker alcohol intake frequency: 0-2 drinks per day Substance Use Type: does not use Exam Initial Vital Signs Initial Vital Signs: Vital Signs Temperature 97.2 F L 02/07/20 23:41 Pulse Rate 124 H 02/07/20 23:41 Respiratory Rate 16 02/07/20 23:41 Blood Pressure 129/86 02/07/20 23:41 Pulse Oximetry 99 02/07/20 23:41 Const General: cooperative and well developed Nutritional Appearance: well nourished HENMT Ears: other (Bilateral hemotympanum.) Nose: external nose normal (Packing in the right nares.), nares normal (Left nares edematous, no active bleeding), septum normal, No epistaxis and other (Edema and contusion to the nose without deformity) Face and sinus: normal facial exam and sinuses nontender Mouth: oral mucosae normal Teeth and gingiva: dentition normal Throat: posterior oropharynx normal Eyes General: appearance normal, both eyes and all related structures Eyelids: eyelids normal Conjunctivae: conjunctivae normal Sclera: sclerae normal Pupils: PERRL EOM: EOM intact bilaterally Skin General: other (Contusion to the nose only.) Neuro General: alert, oriented x3, gait normal and no focal motor deficits Speech: speech normal Procedures Epistaxis Control Nostril: left Direct Inspection: unable to visualize Device Inserted: hemostatic balloon (5.5 cm rhino rocket) Patient Tolerated Procedure: well Course Course Course Narrative: The patient has no active bleeding, with the right packing in place. I cleaned the nares, there is a bit of old blood and mucus. There is no evidence of fresh blood. The patient is anxious about rebleeding once he returns home. I suggested observation for 1 hour before decisions made. He was still prefer been repacked in the left naris despite active bleeding now. He was apparently bleeding from both nares heavily earlier, with no obvious source evident on either side. A 5.5 cm rhino rocket was put into place. He has already arranged and ENT of follow-up. Vital Signs Vital signs: Vital Signs - 8 hr 02/07/20 23:41 Temperature 97.2 F L Pulse Rate 124 H Respiratory Rate 16 Blood Pressure 129/86 Pulse Oximetry 99 MDM - Epistaxis Imaging Data CT scan - head: Radiologist's Impression: [address] [address] [address] Scan Report Signed Patient: Leonidas Oreilly JMR#: [id number] : 1975Acct:[id number] Age/Sex: 44 / MDate of Service: 02/07/20 Loc: ED Accession Number: [id number] Procedure: CT head/brain wo con Ordering Provider: Taniya Ashby P.A-C PROCEDURE: CT HEAD/BRAIN WO CON INDICATIONS: Trauma TECHNIQUE: Noncontrast 4.5 mm thick angled axial sections acquired from the foramen magnum to the vertex, with coronal and sagittal reformats. For radiation dose reduction, the following was used: automated exposure control, adjustment of mA and/or kV according to patient size. COMPARISON: None. FINDINGS: Image quality: Excellent. CSF spaces: Basal cisterns are patent. No extra-axial fluid collections. Ventricles are normal in size and shape. Brain: No midline shift. No intracranial masses or hemorrhage. [place]-white matter interface is normal. Skull and face: Calvarium and visualized facial bones are intact, without suspicious lesions. Sinuses: There is likely displaced nasal bone fracture which is only partially characterized. High density fluid and gas is present within the bilateral maxillary sinuses and the ethmoid air cells. Fluid is layered within the sphenoid sinuses. The frontal sinuses and mastoid air cells are clear. IMPRESSION: 1. No acute intracranial finding. 2. Probable nasal bone fracture with high density fluid and gas within the paranasal sinuses. Findings suggest the presence of blood within the paranasal sinuses. Dictated by: Angelia Seay M.D. on 02/07/2020 at 16:57 Approved by: Angelia Seay M.D. on 02/07/2020 at 16:59 Discharge Plan Departure Patient Disposition: Home Clinical Impression: Epistaxis Instructions: Nosebleed Activity Restrictions/Additional Instructions: Keep the packing is in place until you follow-up with ENT. Return the ER as needed. Prescriptions: No Action carvedilol [Coreg] 25 MG tablet 25 mg PO BID Qty: 0 RF: 0 aspirin 81 MG tablet,delayed release (DR/EC) 81 mg PO QDAY Qty: 30 RF: 0 amlodipine 10 MG tablet 10 mg PO HS Qty: 0 RF: 0 fluticasone propion-salmeterol [Advair Diskus] 250 MCG/50 MCG blister with device 1 puff INH BID Qty: 14 RF: 0 sildenafil [Viagra] 50 MG tablet 50 mg PO PRN PRNQty: 0 RF: 0 lisinopril-hydrochlorothiazide 20 MG/25 MG tablet 1 tab PO QDAY Qty: 0 RF: 0 sitagliptin [Januvia] 100 MG tablet 100 mg PO QDAY Qty: 30 RF: 0 hydrocodone-acetaminophen [[place]] 5-325 mg tablet 1 tab PO Q6H PRN (Reason: pain) Qty: 10 RF: 0 cephalexin [Keflex] 500 mg capsule 500 mg PO QID 7 Days Qty: 28 RF: 0 Referrals: Gonzalez Britt MD [Primary Care Provider] -
[2020-02-08 00:40] VITALS: BP 120/70; PULSE 75; O2SAT 99
== END 2020-02-08 00:35 | disposition home or self-care (01) ==
PROVIDERS: Emergency Provider Emergency Medicine; PCP Internal Medicine
DX: R04.0 Epistaxis (principal)
CPT/HCPCS: 30903; 99282; 99283

== ENCOUNTER 2021-05-08 07:13 | Inpatient (IN) | payer BC, SELFPAY ==
[2021-05-08] VITALS (38 sets, daily range): BP systolic 97–152; BP diastolic 55–94; PULSE 65–79; RESP 5–24; TEMP 36.2–36.4; O2SAT 78–99; BMI 55.2; BMI 55.1
--- NOTE | 2021-05-08 07:28 | DI.RAD.S_ITS ---
PROCEDURE: XR CHEST 1V INDICATIONS: sob, swelling, chf vs arf vs ascites TECHNIQUE: One view of the chest was acquired. COMPARISON: [facility], , CHEST 2 VIEW, 08/04/2016, 14:49. FINDINGS: Surgical changes and devices: None. Lungs and pleura: Retrocardiac opacity and left perihilar opacity appears increased. Low lung volumes. No pneumothorax. Mediastinum: Mediastinal contours appear normal. Heart size is normal. Bones and chest wall: No suspicious bony lesions. Overlying soft tissues appear unremarkable. IMPRESSION: Increased retrocardiac and left perihilar opacity. This could reflect aspiration/atelectasis versus pneumonia. If there is persistent clinical diagnostic uncertainty, continued surveillance with short interval radiographic followup after treatment is recommended. Dictated by: Maurilio Brandon M.D. on 05/08/2021 at 8:26 Approved by: Maurilio Brandon M.D. on 05/08/2021 at 8:32
[2021-05-08] MEDS: FUROSEMIDE 40 MG/4 ML VIAL IV (07:36)
[2021-05-08 07:43] LABS: Hematocrit 42.8 % (41-53); Hemoglobin 13.2 g/dL (13.5-17.5); Mean Corpuscular HGB Conc 30.8 % (30-36); Mean Corpuscular Hemoglobin 22.3 PG (26-34); Mean Corpuscular Volume 72.6 fL (80-100); Platelet Count 238 X10^3/uL (150-400); Red Blood Cell Count 5.89 X10^6/uL (4.5-5.9); Red Cell Distribution Width 22.6 % (11.6-14.8); White Blood Cell Count 10.1 X10^3/uL (4.5-11.0)
[2021-05-08 07:46] LABS: Alanine Aminotransferase 42 IU/L (<50); Albumin 4.2 g/dL (3.5-5.0); Alkaline Phosphatase 66 U/L (38-126); Aspartate Aminotransferase 33 IU/L (17-59); BUN Creatinine Ratio 32.2 (6-22); Bilirubin Total 1.4 mg/dL (0.2-1.3); Blood Urea Nitrogen 29 mg/dL (9-20); Calcium 9.3 mg/dL (8.4-10.2); Carbon Dioxide 35 mmol/L (22-32); Chloride 83 mmol/L (98-107); Creatine Kinase 30 U/L (55-170); Estimated Glomerular Filt Rate > 60.0 mL/min (>60); Globulin 4.3 g/dL (1.7-4.1); Glucose 128 mg/dL (70-100); HEMOLYSIS < 15 (0-50); Lactate (Lactic Acid) 1.5 mmol/L (0.7-2.1); Lipase 220 U/L (23-300); Magnesium 2.6 mg/dL (1.6-2.3); Potassium 5.1 mmol/L (3.4-5.1); Sodium 124 mmol/L (137-145); Total Protein 8.5 g/dL (6.3-8.2)
[2021-05-08 07:47] LABS: Add Manual Diff / Slide Review YES
--- NOTE | 2021-05-08 07:52 | ED.ABDPAIN ---
HPI - Abdominal Pain General Chief Complaint: Abdominal Pain Stated Complaint: stomach having problems, bloated big time Time Seen by Provider: 05/08/21 07:18 Source: patient and family (Spouse) Mode of arrival: Ambulatory Limitations: no limitations History of Present Illness HPI narrative: This is a 45-year-old male who is brought in for having a bloated abdomen. An patient has been having a lot of stomach problems. Patient's state he seems more sleepy lately. She states he has not had any fevers. He denies any chest pain, positive for new shortness of breath. He has had a little bit cough. Patient states he swollen all over. Patient's abdomen has been distended. He has not been vomiting. He has been having bowel movements. He has had decreased urination. Patient has a history of diabetes, hypertension, emphysema and does use inhalers. Related Data Home Medications Medication Instructions Recorded Confirmed carvedilol 25 mg tablet (Coreg) 25 mg PO BID #0 07/01/12 05/09/21 amlodipine 10 mg tablet 10 mg PO HS #0 08/04/16 05/08/21 sildenafil 50 mg tablet (Viagra) 50 mg PO PRN PRN #0 tab 08/04/16 05/09/21 aspirin 325 mg tablet 325 mg PO DAILY 05/10/21 05/10/21 cholecalciferol (vitamin D3) 50 50 mcg PO DAILY 05/10/21 05/10/21 mcg (2,000 unit) tablet (Vitamin D3) clonidine HCl 0.2 mg tablet 0.2 mg PO BID 05/10/21 05/10/21 colchicine 0.6 mg tablet 0.6 mg PO BID PRN 05/10/21 05/10/21 furosemide 20 mg tablet 40 mg PO QAM 05/10/21 05/10/21 glimepiride 2 mg tablet 2 mg PO BID 05/10/21 05/10/21 losartan 50 mg tablet 50 mg PO BID 05/10/21 05/10/21 magnesium 250 mg tablet 500 mg PO DAILY 05/10/21 05/10/21 Previous Rx's Medication Instructions Recorded sitagliptin 100 mg tablet (Januvia) 100 mg PO QDAY #30 tab 08/06/16 Allergies Allergy/AdvReac Type Severity Reaction Status Date / Time No Known Drug Allergies Allergy Verified 05/08/21 13:56 Review of Systems Review of Systems ROS Unobtainable: All systems reviewed & are unremarkable except as noted in HPI and below Patient History Medical History Acute anterior epistaxis Diabetes Fracture closed, nasal bone Hypertension Social History household members: spouse Smoking Status: Never smoker Smoking Status: Never smoker alcohol intake frequency: 0-2 drinks per day Substance Use Type: does not use Exam Narrative Exam Narrative: GEN: Obese male, alert and oriented, patient appears to be in mild distress. Patient had poor color until O2 was placed. HEENT: Atraumatic, pupils are equal round reactive to light, extraocular movements are intact, nares are clear, Throat is clear without any exudates, erythema, tonsillar enlargement or uvular deviation HEART: Regular rate and rhythm without murmur, clicks, rubs. Pulses are equal in upper and lower extremities. 2+ pedal edema bilaterally LUNGS:Lungs decreased bilaterally but equal movement, no wheezes, rales, crackles, chest moves symmetrically ABD:bowel sounds normal, distended, soft, non-tender, no guarding, rebound, rigidity, no masses noted, no hepatosplenomegaly, no fluid wave :No CVA tenderness MSCL: Non-tender, no muscle atrophy, muscles strength 5/5 upper and lower extremities, full range of motion NEURO:CN 2-12 intact, sensation normal Initial Vital Signs Initial Vital Signs: Vital Signs Pulse Rate 79 05/08/21 07:25 Respiratory Rate 20 05/08/21 07:25 Course Orders Ordered: Acetaminophen (Acetaminophen 325 Mg Tablet) 650 mg PO Q6HR PRN PRN Reason: Fever/Mild Pain (1-3) Albuterol (Albuterol 2.5 Mg/3 Ml Neb (Adult)) 2.5 mg INH [id number] DANILO Last Admin: 05/10/21 18:53 Dose: 2.5 mg Documented by: Admin: 05/10/21 15:04 Dose: 2.5 mg Documented by: Admin: 05/10/21 09:11 Dose: 2.5 mg Documented by: Admin: 05/10/21 07:43 Dose: Not Given Documented by: Admin: 05/09/21 22:35 Dose: 2.5 mg Documented by: Admin: 05/09/21 17:39 Dose: 2.5 mg Documented by: Admin: 05/09/21 14:25 Dose: 2.5 mg Documented by: Admin: 05/09/21 14:23 Dose: Not Given Documented by: Admin: 05/09/21 08:27 Dose: 2.5 mg Documented by: Admin: 05/08/21 22:08 Dose: 2.5 mg Documented by: ALFREDO Albuterol (Albuterol 2.5 Mg/3 Ml Neb (Adult)) 2.5 mg INH RTQ2HR PRN PRN Reason: Shortness Of Breath Or Wheezing Last Admin: 05/09/21 04:34 Dose: 2.5 mg Documented by: ALFREDO Budesonide (Budesonide 0.5 Mg/2 Ml Neb) 0.5 mg INH RTBID DANILO Last Admin: 05/10/21 09:12 Dose: 0.5 mg Documented by: Admin: 05/10/21 07:44 Dose: Not Given Documented by: Admin: 05/09/21 22:35 Dose: 0.5 mg Documented by: Admin: 05/09/21 08:26 Dose: 0.5 mg Documented by: Admin: 05/08/21 22:08 Dose: 0.5 mg Documented by: ALFREDO Dextrose (Dextrose 50 % In Water 25 Gm/50 Ml Syringe) 25 gm IV PRN PRN PRN Reason: Hypoglycemia Last Admin: 05/09/21 13:07 Dose: 25 gm Documented by: Admin: 05/09/21 12:02 Dose: 25 gm Documented by: Admin: 05/09/21 08:47 Dose: 12.5 gm Documented by: Admin: 05/09/21 08:05 Dose: 12.5 gm Documented by: Admin: 05/09/21 06:23 Dose: 12.5 gm Documented by: Admin: 05/09/21 03:15 Dose: 12.5 gm Documented by: Admin: 05/09/21 02:30 Dose: 12.5 gm Documented by: SSARDEL Enoxaparin Sodium (Enoxaparin 40 Mg/0.4 Ml Syringe) 40 mg SUBCUT BID [facility] Last Admin: 05/10/21 09:27 Dose: 40 mg Documented by: Admin: 05/09/21 21:00 Dose: 40 mg Documented by: Admin: 05/09/21 10:03 Dose: 40 mg Documented by: KARLA Folic Acid (Folic Acid 1 Mg Tablet) 1 mg PO DAILY [facility] Last Admin: 05/10/21 09:27 Dose: 1 mg Documented by: DAVE Heparin Sodium (Porcine) (Heparin Flush (Cl/Picc/Mid-Line) 50 Unit/5 Ml Syringe) 50 unit IV PRN PRN PRN Reason: Flush Last Admin: 05/10/21 18:55 Dose: 50 unit Documented by: ONIEL Heparin Sodium (Porcine) (Heparin Flush (Cl/Picc/Mid-Line) 50 Unit/5 Ml Syringe) 50 unit IV BID [facility] Ceftriaxone Sodium 1,000 mg/ (Sodium Chloride) 100 mls @ 200 mls/hr IV Q24H [facility] Stop: 05/12/21 10:29 Last Infusion: 05/10/21 12:26 Dose: 0 mls/hr Documented by: Admin: 05/10/21 09:26 Dose: 200 mls/hr Documented by: Infusion: 05/09/21 13:10 Dose: 0 mls/hr Documented by: Admin: 05/09/21 09:51 Dose: 200 mls/hr Documented by: KARLA Metronidazole (Flagyl) 500 mg in 100 mls @ 100 mls/hr IV Q8H [facility] Stop: 05/12/21 14:59 Last Infusion: 05/10/21 15:30 Dose: 0 mls/hr Documented by: Admin: 05/10/21 14:30 Dose: 100 mls/hr Documented by: Infusion: 05/10/21 12:26 Dose: 0 mls/hr Documented by: Admin: 05/10/21 09:27 Dose: 100 mls/hr Documented by: Infusion: 05/10/21 03:19 Dose: 0 mls/hr Documented by: Admin: 05/09/21 23:57 Dose: 100 mls/hr Documented by: Infusion: 05/09/21 19:23 Dose: 0 mls/hr Documented by: Admin: 05/09/21 16:24 Dose: 100 mls/hr Documented by: Infusion: 05/09/21 08:43 Dose: 0 mls/hr Documented by: Admin: 05/09/21 06:23 Dose: 100 mls/hr Documented by: Infusion: 05/09/21 00:00 Dose: 0 mls/hr Documented by: Admin: 05/08/21 22:49 Dose: 100 mls/hr Documented by: Infusion: 05/08/21 16:55 Dose: 100 mls/hr Documented by: Admin: 05/08/21 15:28 Dose: 100 mls/hr Documented by: PRICE Azithromycin 500 mg/ Dextrose 250 mls @ 250 mls/hr IV Q24H DANILO Stop: 05/12/21 16:59 Last Infusion: 05/10/21 18:13 Dose: 0 mls/hr Documented by: Admin: 05/10/21 17:05 Dose: 250 mls/hr Documented by: Infusion: 05/09/21 19:23 Dose: 0 mls/hr Documented by: Admin: 05/09/21 16:23 Dose: 250 mls/hr Documented by: Infusion: 05/08/21 18:00 Dose: 0 mls/hr Documented by: Admin: 05/08/21 16:54 Dose: 250 mls/hr Documented by: ALBERTA Dextrose (D10w) 1,000 mls @ 100 mls/hr IV CONT DANILO Last Infusion: 05/10/21 08:10 Dose: 0 mls/hr Documented by: Infusion: 05/09/21 15:33 Dose: 0 mls/hr Documented by: Admin: 05/09/21 15:33 Dose: 100 mls/hr Documented by: KARLA Insulin Human Lispro (Insulin Lispro 100 Unit/Ml 3ml Vial) 0 unit SUBCUT ACHS DANILO; Protocol Last Admin: 05/10/21 17:12 Dose: 2 unit Documented by: ONIEL Cosigned by: SADI Admin: 05/10/21 12:32 Dose: 2 unit Documented by: DAVE Cosigned by: GILA Admin: 05/10/21 09:29 Dose: 2 unit Documented by: DAVE Ledesamigned by: GILA Admin: 05/09/21 22:06 Dose: 100 unit Documented by: GREY Ledesmaigned by: BASSEM Admin: 05/09/21 16:28 Dose: Not Given Documented by: Admin: 05/09/21 12:11 Dose: Not Given Documented by: Admin: 05/09/21 08:46 Dose: Not Given Documented by: Admin: 05/09/21 07:58 Dose: Not Given Documented by: Admin: 05/08/21 21:59 Dose: Not Given Documented by: BASSEM Lorazepam (Lorazepam 1 Mg Tablet) 0 mg PO CIWAPRN PRN; Protocol PRN Reason: Alcohol Withdrawal Multivitamins (Multivitamin 1 Tablet) 1 tab PO DAILY [facility] Last Admin: 05/10/21 09:26 Dose: 1 tab Documented by: DAVE Naloxone HCl (Naloxone 0.4 Mg/Ml Vial) 0.2 mg IV Q2MIN PRN PRN Reason: Opiate Reversal Ondansetron HCl (Ondansetron 4 Mg/2 Ml Inj) 4 mg IV Q8HR PRN PRN Reason: Nausea And Vomiting Prednisone (Prednisone 20 Mg Tablet) 40 mg PO DAILY [facility] Last Admin: 05/10/21 09:27 Dose: 40 mg Documented by: DAVE Sodium Chloride (Sodium Chloride 0.9% Flush) 10 ml IV PRN PRN PRN Reason: Flush Last Admin: 05/10/21 18:55 Dose: 10 ml Documented by: ONIEL Sodium Chloride (Sodium Chloride 0.9% Flush) 10 ml IV BID [facility] Last Admin: 05/10/21 18:55 Dose: 10 ml Documented by: Admin: 05/10/21 09:28 Dose: 10 ml Documented by: Admin: 05/09/21 20:59 Dose: 10 ml Documented by: Admin: 05/09/21 09:57 Dose: Not Given Documented by: Admin: 05/08/21 22:49 Dose: 10 ml Documented by: BASSEM Thiamine HCl (Thiamine 100 Mg Tablet) 100 mg PO DAILY [facility] Stop: 05/13/21 09:01 Last Admin: 05/10/21 09:26 Dose: 100 mg Documented by: DAVE Discontinued Medications Enoxaparin Sodium (Enoxaparin 40 Mg/0.4 Ml Syringe) 40 mg SUBCUT DAILY [facility] Last Admin: 05/09/21 17:02 Dose: Not Given Documented by: GREY Furosemide (Furosemide 40 Mg/4 Ml Vial) 40 mg IV NOW ONE Stop: 05/08/21 07:28 Last Admin: 05/08/21 07:36 Dose: 40 mg Documented by: HAILEE Furosemide (Furosemide 40 Mg/4 Ml Vial) 40 mg IV Q12HR [facility] Furosemide (Furosemide 40 Mg/4 Ml Vial) 40 mg IV DAILY [facility] Last Admin: 05/09/21 09:53 Dose: 40 mg Documented by: KARLA Furosemide (Furosemide 40 Mg/4 Ml Vial) 40 mg IV Q12HR [facility] Furosemide (Furosemide 20 Mg/2 Ml Vial) 40 mg IV BID [facility] Last Admin: 05/09/21 21:00 Dose: Not Given Documented by: Admin: 05/09/21 20:59 Dose: 40 mg Documented by: GREY Ceftriaxone Sodium 2,000 mg/ (Sodium Chloride) 100 mls @ 200 mls/hr IV NOW ONE Stop: 05/08/21 09:26 Last Infusion: 05/08/21 11:00 Dose: 0 mls/hr Documented by: Admin: 05/08/21 09:41 Dose: 200 mls/hr Documented by: KENNETH Metronidazole (Flagyl) 500 mg in 100 mls @ 100 mls/hr IV NOW ONE Stop: 05/08/21 10:36 Last Infusion: 05/08/21 12:13 Dose: 0 mls/hr Documented by: Admin: 05/08/21 10:39 Dose: 100 mls/hr Documented by: KENNETH Calcium Gluconate 4.65 meq/ (Sodium Chloride) 60 mls @ 180 mls/hr IV NOW ONE Stop: 05/09/21 08:43 Last Infusion: 05/09/21 15:36 Dose: 0 mls/hr Documented by: Admin: 05/09/21 08:52 Dose: 180 mls/hr Documented by: KARLA Dextrose (Dextrose 5% Water) 1,000 mls @ 75 mls/hr IV CONT [facility] Last Infusion: 05/10/21 03:09 Dose: 0 mls/hr Documented by: Infusion: 05/09/21 17:00 Dose: 50 mls/hr Documented by: Infusion: 05/09/21 14:00 Dose: 150 mls/hr Documented by: Admin: 05/09/21 11:45 Dose: 75 mls/hr Documented by: KARLA Insulin Human Regular (Insulin Regular 100 Unit/Ml 3 Ml Vial) 10 unit IV NOW ONE Stop: 05/09/21 08:25 Last Admin: 05/09/21 15:31 Dose: Not Given Documented by: KARLA Lidocaine HCl (Lidocaine 2% (Glydo) 6 Ml Gel) 6 ml TOP NOW ONE Stop: 05/08/21 09:59 Last Admin: 05/08/21 10:40 Dose: 6 ml Documented by: KENNETH Methylprednisolone (Methylprednisolone 125 Mg/2 Ml Vial) 60 mg IV Q6H [facility] Last Admin: 05/09/21 16:25 Dose: 60 mg Documented by: Admin: 05/09/21 12:11 Dose: 60 mg Documented by: KARLA Non-Formulary Medication (Fluticasone Propion-Salmeterol [Advair Diskus]) 1 puff INH BID [facility] Oxycodone HCl (Oxycodone Ir 5 Mg Tablet) 5 mg PO Q6HR PRN PRN Reason: Pain, Moderate (4-6) Sodium Polystyrene Sulfonate (Sodium Polystyrene Sulfon/Sorb 15 Gm/60 Ml Cup) 30 gm PO NOW ONE Stop: 05/09/21 08:41 Last Admin: 05/09/21 15:36 Dose: Not Given Documented by: KARLA Consultations Consultation #1: Dr. Douglass, agrees with antibiotic coverage. No surgical intervention at this time. Consultation #2: Dr. mosher accepts pneumonia patient also noted to have colonic diverticula without inflammatory changes several possible foci of air and concerning for perforation. Patient was covered with antibiotics. Vital Signs Vital signs: Vital Signs - 8 hr 05/08/21 07:25 05/08/21 07:26 05/08/21 07:30 Temperature 97.2 F L Pulse Rate 79 78 76 Respiratory Rate 20 21 21 Blood Pressure 152/94 H Pulse Oximetry 96 05/08/21 07:33 05/08/21 08:00 05/08/21 08:01 Temperature Pulse Rate 72 75 74 Respiratory Rate 17 20 23 Blood Pressure 122/70 98/68 Pulse Oximetry 97 78 L 79 L 05/08/21 08:30 05/08/21 09:00 05/08/21 09:30 Temperature Pulse Rate 66 73 67 Respiratory Rate 15 18 16 Blood Pressure 103/66 119/71 Pulse Oximetry 89 L 93 05/08/21 09:31 05/08/21 10:00 05/08/21 10:01 Temperature Pulse Rate 69 71 70 Respiratory Rate 16 18 17 Blood Pressure 109/59 L 126/81 Pulse Oximetry 95 92 05/08/21 10:30 05/08/21 10:31 05/08/21 11:00 Temperature Pulse Rate 68 70 66 Respiratory Rate 18 17 14 Blood Pressure 104/62 105/70 Pulse Oximetry 94 94 92 05/08/21 11:05 05/08/21 11:30 05/08/21 12:03 Temperature Pulse Rate 71 73 Respiratory Rate 12 20 Blood Pressure 104/59 L Pulse Oximetry 93 92 97 MDM - Abdominal Pain Lab Data Result diagrams: 05/10/21 05:15 05/10/21 13:09 Labs: Lab Results 05/08/21 05/08/21 05/08/21 Range/Units 07:26 07:26 07:26 WBC 10.1 (4.5-11.0) X10^3/uL RBC 5.89 (4.5-5.9) X10^6/uL Hgb 13.2 L (13.5-17.5) g/dL Hct 42.8 (41-53) % MCV 72.6 L (80-100) fL MCH 22.3 L (26-34) PG MCHC 30.8 (30-36) % RDW 22.6 H (11.6-14.8) % Plt Count 238 (150-400) X10^3/uL Neut % (Auto) Not Reportable Lymph % (Auto) Not Reportable [place] % (Auto) Not Reportable Eos % (Auto) Not Reportable Baso % (Auto) Not Reportable Lymph # (Auto) Not Reportable [place] # (Auto) Not Reportable Baso # (Auto) Not Reportable Total Counted 100 Seg Neutrophils % 80.0 H (38-70) % Lymphocytes % (Manual) 7.0 L (25-45) % Monocytes % (Manual) 12.0 H (2-11) % Eosinophils % (Manual) 1.0 L (2-4) % Neutrophils # (Manual) 8080 H (6953-9676) /uL Nucleated RBCs 1 H ( - 0) #/Diff Platelet Estimate Adequate on smear RBC Morphology See below Polychromasia 2+ H Hypochromasia 1+ H Anisocytosis 2+ H PT (10.1-12.7) SECONDS INR (0.9-1.3) ABG pH (7.35-7.45) ABG pCO2 (35-45) mmHg ABG pO2 (80-100) mmHg ABG HCO3 (22-26) mmol/L ABG Total CO2 (21-31) mmol/L ABG O2 Saturation (95-100) % ABG Base Excess (-2-2) mmol/L FiO2 Sodium (137-145) mmol/L Potassium (3.4-5.1) mmol/L Chloride (98-107) mmol/L Carbon Dioxide (22-32) mmol/L BUN (9-20) mg/dL Creatinine (0.66-1.25) mg/dL Estimated GFR (>60) mL/min BUN/Creatinine Ratio (6-22) Glucose (70-100) mg/dL Lactate 1.5 (0.7-2.1) mmol/L Calcium (8.4-10.2) mg/dL Magnesium 2.6 H (1.6-2.3) mg/dL Total Bilirubin (0.2-1.3) mg/dL AST (17-59) IU/L ALT (<50) IU/L Alkaline Phosphatase (38-126) U/L Ammonia (9-30) umol/L Total Creatine Kinase 30 L (55-170) U/L CK-MB (CK-2) TNP CK-MB (CK-2) Rel Index TNP Troponin I < 0.012 (0.01-0.034) ng/mL NT-Pro-B Natriuret Pep 844 H (<125) pg/mL Total Protein (6.3-8.2) g/dL Albumin (3.5-5.0) g/dL Globulin (1.7-4.1) g/dL Albumin/Globulin Ratio (1.0-2.8) Lipase 220 (23-300) U/L TSH (0.47-4.68) uIU/mL Urine Color Urine Appearance Urine pH (4.5-8.0) Ur Specific Bentley (1.000-1.035) Urine Protein (Negative) Urine Glucose (UA) (Negative) g/dL Urine Ketones (NEGATIVE) Urine Occult Blood (Negative) Urine Nitrate (Negative) Urine Bilirubin (NEGATIVE) Urine Urobilinogen (0.2) E.U./dL Ur Leukocyte Esterase (NEGATIVE) Urine RBC (0-5/HPF) Urine WBC (0-5/HPF) Ur Squamous Epith Cells (0-5/HPF) Urine Bacteria (None) Hyaline Casts (None) Ur Culture Indicated? U Opiates 300ng/mL cut (Negative) Ur Oxycodone Screen (Negative) Urine Methadone Screen (Negative) Ur Barbiturates Screen (Negative) U Tricyclic Antidepress (Negative) Ur Phencyclidine Scrn (Negative) Ur Amphetamines Screen (Negative) U Methamphetamines Scrn (Negative) Ur MDMA Scrn (Ecstasy) (Negative) U Benzodiazepines Scrn (Negative) Urine Cocaine Screen (Negative) U Marijuana (THC) Screen (Negative) SARS-CoV-2 (PCR) (Negative) 05/08/21 05/08/21 05/08/21 Range/Units 07:26 07:26 08:08 WBC (4.5-11.0) X10^3/uL RBC (4.5-5.9) X10^6/uL Hgb (13.5-17.5) g/dL Hct (41-53) % MCV (80-100) fL MCH (26-34) PG MCHC (30-36) % RDW (11.6-14.8) % Plt Count (150-400) X10^3/uL Neut % (Auto) Lymph % (Auto) [place] % (Auto) Eos % (Auto) Baso % (Auto) Lymph # (Auto) [place] # (Auto) Baso # (Auto) Total Counted Seg Neutrophils % (38-70) % Lymphocytes % (Manual) (25-45) % Monocytes % (Manual) (2-11) % Eosinophils % (Manual) (2-4) % Neutrophils # (Manual) (0432-9176) /uL Nucleated RBCs ( - 0) #/Diff Platelet Estimate RBC Morphology Polychromasia Hypochromasia Anisocytosis PT (10.1-12.7) SECONDS INR (0.9-1.3) ABG pH 7.39 (7.35-7.45) ABG pCO2 65.0 H* (35-45) mmHg ABG pO2 48 L* (80-100) mmHg ABG HCO3 40 H (22-26) mmol/L ABG Total CO2 42 H (21-31) mmol/L ABG O2 Saturation 82 L* (95-100) % ABG Base Excess 15.0 H (-2-2) mmol/L FiO2 21 Sodium 124 L (137-145) mmol/L Potassium 5.1 (3.4-5.1) mmol/L Chloride 83 L (98-107) mmol/L Carbon Dioxide 35 H (22-32) mmol/L BUN 29 H (9-20) mg/dL Creatinine 0.90 (0.66-1.25) mg/dL Estimated GFR > 60.0 (>60) mL/min BUN/Creatinine Ratio 32.2 H (6-22) Glucose 128 H (70-100) mg/dL Lactate (0.7-2.1) mmol/L Calcium 9.3 (8.4-10.2) mg/dL Magnesium (1.6-2.3) mg/dL Total Bilirubin 1.4 H (0.2-1.3) mg/dL AST 33 (17-59) IU/L ALT 42 (<50) IU/L Alkaline Phosphatase 66 (38-126) U/L Ammonia (9-30) umol/L Total Creatine Kinase (55-170) U/L CK-MB (CK-2) CK-MB (CK-2) Rel Index Troponin I (0.01-0.034) ng/mL NT-Pro-B Natriuret Pep (<125) pg/mL Total Protein 8.5 H (6.3-8.2) g/dL Albumin 4.2 (3.5-5.0) g/dL Globulin 4.3 H (1.7-4.1) g/dL Albumin/Globulin Ratio 1.0 (1.0-2.8) Lipase (23-300) U/L TSH 3.83 (0.47-4.68) uIU/mL Urine Color Urine Appearance Urine pH (4.5-8.0) Ur Specific Bentley (1.000-1.035) Urine Protein (Negative) Urine Glucose (UA) (Negative) g/dL Urine Ketones (NEGATIVE) Urine Occult Blood (Negative) Urine Nitrate (Negative) Urine Bilirubin (NEGATIVE) Urine Urobilinogen (0.2) E.U./dL Ur Leukocyte Esterase (NEGATIVE) Urine RBC (0-5/HPF) Urine WBC (0-5/HPF) Ur Squamous Epith Cells (0-5/HPF) Urine Bacteria (None) Hyaline Casts (None) Ur Culture Indicated? U Opiates 300ng/mL cut (Negative) Ur Oxycodone Screen (Negative) Urine Methadone Screen (Negative) Ur Barbiturates Screen (Negative) U Tricyclic Antidepress (Negative) Ur Phencyclidine Scrn (Negative) Ur Amphetamines Screen (Negative) U Methamphetamines Scrn (Negative) Ur MDMA Scrn (Ecstasy) (Negative) U Benzodiazepines Scrn (Negative) Urine Cocaine Screen (Negative) U Marijuana (THC) Screen (Negative) SARS-CoV-2 (PCR) (Negative) 05/08/21 05/08/21 05/08/21 Range/Units 08:10 08:10 08:35 WBC (4.5-11.0) X10^3/uL RBC (4.5-5.9) X10^6/uL Hgb (13.5-17.5) g/dL Hct (41-53) % MCV (80-100) fL MCH (26-34) PG MCHC (30-36) % RDW (11.6-14.8) % Plt Count (150-400) X10^3/uL Neut % (Auto) Lymph % (Auto) [place] % (Auto) Eos % (Auto) Baso % (Auto) Lymph # (Auto) [place] # (Auto) Baso # (Auto) Total Counted Seg Neutrophils % (38-70) % Lymphocytes % (Manual) (25-45) % Monocytes % (Manual) (2-11) % Eosinophils % (Manual) (2-4) % Neutrophils # (Manual) (8258-3506) /uL Nucleated RBCs ( - 0) #/Diff Platelet Estimate RBC Morphology Polychromasia Hypochromasia Anisocytosis PT 16.0 H (10.1-12.7) SECONDS INR 1.4 H (0.9-1.3) ABG pH (7.35-7.45) ABG pCO2 (35-45) mmHg ABG pO2 (80-100) mmHg ABG HCO3 (22-26) mmol/L ABG Total CO2 (21-31) mmol/L ABG O2 Saturation (95-100) % ABG Base Excess (-2-2) mmol/L FiO2 Sodium (137-145) mmol/L Potassium (3.4-5.1) mmol/L Chloride (98-107) mmol/L Carbon Dioxide (22-32) mmol/L BUN (9-20) mg/dL Creatinine (0.66-1.25) mg/dL Estimated GFR (>60) mL/min BUN/Creatinine Ratio (6-22) Glucose (70-100) mg/dL Lactate (0.7-2.1) mmol/L Calcium (8.4-10.2) mg/dL Magnesium (1.6-2.3) mg/dL Total Bilirubin (0.2-1.3) mg/dL AST (17-59) IU/L ALT (<50) IU/L Alkaline Phosphatase (38-126) U/L Ammonia 25 (9-30) umol/L Total Creatine Kinase (55-170) U/L CK-MB (CK-2) CK-MB (CK-2) Rel Index Troponin I (0.01-0.034) ng/mL NT-Pro-B Natriuret Pep (<125) pg/mL Total Protein (6.3-8.2) g/dL Albumin (3.5-5.0) g/dL Globulin (1.7-4.1) g/dL Albumin/Globulin Ratio (1.0-2.8) Lipase (23-300) U/L TSH (0.47-4.68) uIU/mL Urine Color Urine Appearance Urine pH (4.5-8.0) Ur Specific Bent[place] (1.000-1.035) Urine Protein (Negative) Urine Glucose (UA) (Negative) g/dL Urine Ketones (NEGATIVE) Urine Occult Blood (Negative) Urine Nitrate (Negative) Urine Bilirubin (NEGATIVE) Urine Urobilinogen (0.2) E.U./dL Ur Leukocyte Esterase (NEGATIVE) Urine RBC (0-5/HPF) Urine WBC (0-5/HPF) Ur Squamous Epith Cells (0-5/HPF) Urine Bacteria (None) Hyaline Casts (None) Ur Culture Indicated? U Opiates 300ng/mL cut (Negative) Ur Oxycodone Screen (Negative) Urine Methadone Screen (Negative) Ur Barbiturates Screen (Negative) U Tricyclic Antidepress (Negative) Ur Phencyclidine Scrn (Negative) Ur Amphetamines Screen (Negative) U Methamphetamines Scrn (Negative) Ur MDMA Scrn (Ecstasy) (Negative) U Benzodiazepines Scrn (Negative) Urine Cocaine Screen (Negative) U Marijuana (THC) Screen (Negative) SARS-CoV-2 (PCR) Negative (Negative) 05/08/21 05/08/21 Range/Units 10:15 10:15 WBC (4.5-11.0) X10^3/uL RBC (4.5-5.9) X10^6/uL Hgb (13.5-17.5) g/dL Hct (41-53) % MCV (80-100) fL MCH (26-34) PG MCHC (30-36) % RDW (11.6-14.8) % Plt Count (150-400) X10^3/uL Neut % (Auto) Lymph % (Auto) [place] % (Auto) Eos % (Auto) Baso % (Auto) Lymph # (Auto) [place] # (Auto) Baso # (Auto) Total Counted Seg Neutrophils % (38-70) % Lymphocytes % (Manual) (25-45) % Monocytes % (Manual) (2-11) % Eosinophils % (Manual) (2-4) % Neutrophils # (Manual) (5822-4566) /uL Nucleated RBCs ( - 0) #/Diff Platelet Estimate RBC Morphology Polychromasia Hypochromasia Anisocytosis PT (10.1-12.7) SECONDS INR (0.9-1.3) ABG pH (7.35-7.45) ABG pCO2 (35-45) mmHg ABG pO2 (80-100) mmHg ABG HCO3 (22-26) mmol/L ABG Total CO2 (21-31) mmol/L ABG O2 Saturation (95-100) % ABG Base Excess (-2-2) mmol/L FiO2 Sodium (137-145) mmol/L Potassium (3.4-5.1) mmol/L Chloride (98-107) mmol/L Carbon Dioxide (22-32) mmol/L BUN (9-20) mg/dL Creatinine (0.66-1.25) mg/dL Estimated GFR (>60) mL/min BUN/Creatinine Ratio (6-22) Glucose (70-100) mg/dL Lactate (0.7-2.1) mmol/L Calcium (8.4-10.2) mg/dL Magnesium (1.6-2.3) mg/dL Total Bilirubin (0.2-1.3) mg/dL AST (17-59) IU/L ALT (<50) IU/L Alkaline Phosphatase (38-126) U/L Ammonia (9-30) umol/L Total Creatine Kinase (55-170) U/L CK-MB (CK-2) CK-MB (CK-2) Rel Index Troponin I (0.01-0.034) ng/mL NT-Pro-B Natriuret Pep (<125) pg/mL Total Protein (6.3-8.2) g/dL Albumin (3.5-5.0) g/dL Globulin (1.7-4.1) g/dL Albumin/Globulin Ratio (1.0-2.8) Lipase (23-300) U/L TSH (0.47-4.68) uIU/mL Urine Color Yellow Urine Appearance Clear Urine pH 5.5 (4.5-8.0) Ur Specific [place] 1.010 (1.000-1.035) Urine Protein Trace H (Negative) Urine Glucose (UA) Negative (Negative) g/dL Urine Ketones Negative (NEGATIVE) Urine Occult Blood 3+ H (Negative) Urine Nitrate Negative (Negative) Urine Bilirubin Negative (NEGATIVE) Urine Urobilinogen 0.2 (0.2) E.U./dL Ur Leukocyte Esterase Negative (NEGATIVE) Urine RBC 10-30/hpf H (0-5/HPF) Urine WBC 1-5/hpf (0-5/HPF) Ur Squamous Epith Cells 0-1 /hpf (0-5/HPF) Urine Bacteria Few (2-10) H (None) Hyaline Casts 0-1/lpf (None) Ur Culture Indicated? Cult not indicated U Opiates 300ng/mL cut Negative (Negative) Ur Oxycodone Screen Negative (Negative) Urine Methadone Screen Negative (Negative) Ur Barbiturates Screen Negative (Negative) U Tricyclic Antidepress Negative (Negative) Ur Phencyclidine Scrn Negative (Negative) Ur Amphetamines Screen Negative (Negative) U Methamphetamines Scrn Negative (Negative) Ur MDMA Scrn (Ecstasy) Negative (Negative) U Benzodiazepines Scrn Negative (Negative) Urine Cocaine Screen Negative (Negative) U Marijuana (THC) Screen Negative (Negative) SARS-CoV-2 (PCR) (Negative) Point of care testing: Urine Dip Bedside Urine Glucose Negative Bedside Urine Bilirubin - Negative Bedside Urine Ketone - Negative Urine Specific Bentley 1.015 Bedside Urine Occult Blood +++ Bedside Urine pH 6 Bedside Urine Protein - Negative Bedside Urine Urobilinogen - Negative Bedside Urine Nitrite - Negative Bedside Urine Leukocytes - Negative Esterase Imaging Data Chest x-ray: Radiologist's Impression: [address] [id number] ReportSigned Patient: Leonidas Oreilly JMR#: [id number]: 1975Acct:[id number]/Sex: 45 / MDate of Service: 05/08/21Loc: EDAccession Number: [id number] Procedure: XR chest 1V Ordering Provider: Molly Whitlock D.O. PROCEDURE: XR CHEST 1V INDICATIONS: sob, swelling, chf vs arf vs ascites TECHNIQUE: One view of the chest was acquired. COMPARISON: [facility], , CHEST 2 VIEW, 08/04/2016, 14:49. FINDINGS: Surgical changes and devices: None. Lungs and pleura: Retrocardiac opacity and left perihilar opacity appears increased. Low lung volumes. No pneumothorax. Mediastinum: Mediastinal contours appear normal. Heart size is normal. Bones and chest wall: No suspicious bony lesions. Overlying soft tissues appear unremarkable. IMPRESSION: Increased retrocardiac and left perihilar opacity. This could reflect aspiration/atelectasis versus pneumonia. If there is persistent clinical diagnostic uncertainty, continued surveillance with short interval radiographic followup after treatment is recommended. Dictated by: Maurilio Brandon M.D. on 05/08/2021 at 8:26 Approved by: Maurilio Brandon M.D. on 05/08/2021 at 8:32 CT scan - chest: Radiologist's Impression: Leonidas Oreilly [address] [id number] Scan ReportSigned Patient: Leonidas Oreilly JMR#: [id number]: 1975Acct:[id number]/Sex: 45 / MDate of Service: 05/08/21Loc: EDAccession Number: [id number] Procedure: CT angio chest PE protocol Ordering Provider: Molly Whitlock D.O. PROCEDURE: CT ANGIO CHEST PE PROTOCOL INDICATIONS: hypoxia, swelling, electrolyte abnormalities. TECHNIQUE: After the administration of intravenous contrast, 2 mm thick sections acquired from the pulmonary apices to the posterior costophrenic angles. 3-dimensional maximum intensity projection (MIP) coronal and sagittal reformats were then acquired through the thorax. For radiation dose reduction, the following was used: automated exposure control, adjustment of mA and/or kV according to patient size. COMPARISON: None. FINDINGS: Image quality: Prominent artifact is present, particularly limiting evaluation of segmental branches of the pulmonary arteries. Pulmonary arteries: Pulmonary arteries are normal in size, and demonstrate no intraluminal filling defects to suggest central pulmonary embolism. Artifact is present with heterogeneous appearance of the segmental branches of the pulmonary arteries. Lungs and pleura: Minimal bilateral effusions. No pneumothorax. Central and peripheral airways are patent. Mediastinum: Heart size is enlarged, without pericardial effusion. No mediastinal or hilar adenopathy. Thoracic aorta is normal in caliber and enhancement. Esophagus is normal in caliber, without hiatal hernia. Bones and chest wall: No suspicious bony lesions. Ribs and thoracic spine appear intact throughout. Thyroid gland is unremarkable. No axillary or supraclavicular adenopathy. Abdomen: Visualized upper abdominal solid organs appear normal in the early arterial phase of enhancement. IMPRESSION: 1. No central pulmonary embolism. 2. Prominent artifact is present limiting evaluation of segmental pulmonary arteries which are overall heterogeneous. Areas of small distal emboli cannot be excluded. 3. Minimal bilateral effusions. Dictated by: Annamaria Ladd M.D. on 05/08/2021 at 9:20 Approved by: Annamaria Ladd M.D. on 05/08/2021 at 9:24 CT scan - abdomen/pelvis: Radiologist's Impression: [address] [id number] Scan ReportSigned Patient: Leonidas Oreilly JMR#: [id number]: 1975Acct:[id number]/Sex: 45 / MDate of Service: 05/08/21Loc: EDAccession Number: [id number] Procedure: CT abdomen pelvis w con Ordering Provider: Molly Whitlock D.O. PROCEDURE: CT ABDOMEN PELVIS W CON INDICATIONS: hypoxia, swelling, electrolyte abnormalities. TECHNIQUE: After the administration of intravenous contrast, axial sections acquired from the lung bases to the pubic symphysis. Coronal and sagittal reformats were performed. For radiation dose reduction, the following was used: automated exposure control, adjustment of mA and/or kV according to patient size. COMPARISON: US, ABDOMEN COMPLETE, 08/05/2016, 7:52. FINDINGS: Image quality: Excellent. Lung bases: Minimal bilateral effusions. Heart: The heart is enlarged. ABDOMEN: Liver: Liver is enlarged with steatosis. Mild appearance of coarsening/nodularity is noted. Gallbladder: The gallbladder is unremarkable. Biliary ducts: Unremarkable. Pancreas: Unremarkable. Spleen: Unremarkable. Adrenal Glands: Unremarkable. Kidneys and Ureters: Unremarkable. Stomach and Bowel: Stomach, small bowel loops, and colon are nonobstructive. Colonic diverticular present within the left colon particularly numerous within the distal descending and proximal sigmoid colon. There are several scattered areas of punctate air which are in close, possibly separate proximity to the diverticula. Peritoneum: Mild scattered fluid is present, most notable perihepatic. Ventral Wall: No hernias. Abdominal Nodes: No retroperitoneal or mesenteric adenopathy by size criteria. Vessels: Aorta and inferior vena cava are normal in size. PELVIS: Pelvic Organs: Unremarkable. Bladder: Unremarkable. Pelvic Nodes: No enlarged lymph nodes. Miscellaneous: No hernias are seen. Bones: Unremarkable. IMPRESSION: 1. Colonic diverticula without associated inflammatory change. It is noted as above, several foci of air appear in close proximity to diverticula although difficult to definitively identify as part of the air-filled diverticulum. This could be related to volume averaging. However, several punctate areas of free air cannot be definitively excluded. 2. Mild scattered abdominal and pelvic fluid most notable perihepatic. Liver is mildly enlarged with steatosis as well as an overall appearance of coarsening/nodularity suggestive of potential developing cirrhosis. The above findings were discussed with Dr. Molly Whitlock on 05/08/2021 at 9:35 a.m. Dictated by: Annamaria Ladd M.D. on 05/08/2021 at 9:25 Approved by: Annamaria Ladd M.D. on 05/08/2021 at 9:38 ECG Data Interpretation: Sinus rhythm with first-degree AV block. Right axis deviation. Incomplete right bundle branch. Rate of 79 MO 218 QRS of 114 and QTC 463. Patient has prior from 06/22/2012 which appears similar except for some nonspecific change in the lateral leads. No elevation noted. MDM Narrative Medical decision making narrative: This is a 45-year-old male who is chronically ill with diabetes, hypertension, asthma, ALYSA morbid obesity with BMI of 55. Patient came with complaint of bloating. Patient has been more sleepy and his color has not been well. Patient has been complaining of some shortness of breath and was hypoxic upon arrival to the department. In color improved. ABG shows a PO2 of 48 with hypercapnic respiratory failure with metabolic compensation. Patient was placed on high-flow in the department. To 6 through was showed possible infiltrate and patient's CT showed hepatic changes but no ascites there was some foci of air for possible diverticular per but no sign of infection. Patient was covered with IV antibiotics for pulmonary as well as abdominal coverage. General surgery was consulted as well as hospitalist service who accepts patient. Discharge Plan Departure Patient Disposition: Admitted As Inpatient Clinical Impression: Pneumonia Admit Date/Time: 05/08/21 12:22 Admit Provider: Ritchie Mosher
[2021-05-08 07:58] LABS: NT-proBNP (BNP-Adult 18+) 844 pg/mL (<125); Troponin I < 0.012 ng/mL (0.01-0.034)
--- NOTE | 2021-05-08 08:17 | DI.CT.S_ITS ---
PROCEDURE: CT ABDOMEN PELVIS W CON INDICATIONS: hypoxia, swelling, electrolyte abnormalities. TECHNIQUE: After the administration of intravenous contrast, axial sections acquired from the lung bases to the pubic symphysis. Coronal and sagittal reformats were performed. For radiation dose reduction, the following was used: automated exposure control, adjustment of mA and/or kV according to patient size. COMPARISON: US, ABDOMEN COMPLETE, 08/05/2016, 7:52. FINDINGS: Image quality: Excellent. Lung bases: Minimal bilateral effusions. Heart: The heart is enlarged. ABDOMEN: Liver: Liver is enlarged with steatosis. Mild appearance of coarsening/nodularity is noted. Gallbladder: The gallbladder is unremarkable. Biliary ducts: Unremarkable. Pancreas: Unremarkable. Spleen: Unremarkable. Adrenal Glands: Unremarkable. Kidneys and Ureters: Unremarkable. Stomach and Bowel: Stomach, small bowel loops, and colon are nonobstructive. Colonic diverticular present within the left colon particularly numerous within the distal descending and proximal sigmoid colon. There are several scattered areas of punctate air which are in close, possibly separate proximity to the diverticula. Peritoneum: Mild scattered fluid is present, most notable perihepatic. Ventral Wall: No hernias. Abdominal Nodes: No retroperitoneal or mesenteric adenopathy by size criteria. Vessels: Aorta and inferior vena cava are normal in size. PELVIS: Pelvic Organs: Unremarkable. Bladder: Unremarkable. Pelvic Nodes: No enlarged lymph nodes. Miscellaneous: No hernias are seen. Bones: Unremarkable. IMPRESSION: 1. Colonic diverticula without associated inflammatory change. It is noted as above, several foci of air appear in close proximity to diverticula although difficult to definitively identify as part of the air-filled diverticulum. This could be related to volume averaging. However, several punctate areas of free air cannot be definitively excluded. 2. Mild scattered abdominal and pelvic fluid most notable perihepatic. Liver is mildly enlarged with steatosis as well as an overall appearance of coarsening/nodularity suggestive of potential developing cirrhosis. The above findings were discussed with Dr. Molly Whitlock on 05/08/2021 at 9:35 a.m. Dictated by: Annamaria Ladd M.D. on 05/08/2021 at 9:25 Approved by: Annamaria Ladd M.D. on 05/08/2021 at 9:38
--- NOTE | 2021-05-08 08:17 | DI.CT.S_ITS ---
PROCEDURE: CT ANGIO CHEST PE PROTOCOL INDICATIONS: hypoxia, swelling, electrolyte abnormalities. TECHNIQUE: After the administration of intravenous contrast, 2 mm thick sections acquired from the pulmonary apices to the posterior costophrenic angles. 3-dimensional maximum intensity projection (MIP) coronal and sagittal reformats were then acquired through the thorax. For radiation dose reduction, the following was used: automated exposure control, adjustment of mA and/or kV according to patient size. COMPARISON: None. FINDINGS: Image quality: Prominent artifact is present, particularly limiting evaluation of segmental branches of the pulmonary arteries. Pulmonary arteries: Pulmonary arteries are normal in size, and demonstrate no intraluminal filling defects to suggest central pulmonary embolism. Artifact is present with heterogeneous appearance of the segmental branches of the pulmonary arteries. Lungs and pleura: Minimal bilateral effusions. No pneumothorax. Central and peripheral airways are patent. Mediastinum: Heart size is enlarged, without pericardial effusion. No mediastinal or hilar adenopathy. Thoracic aorta is normal in caliber and enhancement. Esophagus is normal in caliber, without hiatal hernia. Bones and chest wall: No suspicious bony lesions. Ribs and thoracic spine appear intact throughout. Thyroid gland is unremarkable. No axillary or supraclavicular adenopathy. Abdomen: Visualized upper abdominal solid organs appear normal in the early arterial phase of enhancement. IMPRESSION: 1. No central pulmonary embolism. 2. Prominent artifact is present limiting evaluation of segmental pulmonary arteries which are overall heterogeneous. Areas of small distal emboli cannot be excluded. 3. Minimal bilateral effusions. Dictated by: Annamaria Ladd M.D. on 05/08/2021 at 9:20 Approved by: Annamaria Ladd M.D. on 05/08/2021 at 9:24
[2021-05-08 08:29] LABS: INR 1.4 (0.9-1.3)
[2021-05-08 08:30] LABS: Ammonia (NH3) 25 umol/L (9-30)
[2021-05-08 08:33] LABS: Anisocytosis 2+; Hypochromasia 1+; Platelet Estimate Adequate on smear
[2021-05-08 08:34] LABS: Polychromasia 2+
[2021-05-08] MEDS: cefTRIAXone 2,000 MG in SODIUM CHLORIDE 0.9% 100 ML 200 ML IV (09:41)
[2021-05-08 10:09] LABS: COVID19 - ADMIT (NP swab/PCR) Negative (Negative)
[2021-05-08] MEDS: metroNIDAZOLE 500 MG/100 ML PIGGYBACK 100 MG IV ×3 (10:39→22:49)
[2021-05-08] MEDS: LIDOCAINE 2% (GLYDO) 6 ML GEL TOP (10:40)
[2021-05-08 10:41] LABS: pH ABG 7.39 (7.35-7.45)
[2021-05-08 10:42] LABS: HCO3 ABG 40 mmol/L (22-26); PO2 ABG 48 mmHg (80-100); TCO2 ABG 42 mmol/L (21-31)
[2021-05-08 10:43] LABS: Fractionated Inspired Oxygen 21; Oxygen Saturation ABG 82 % (95-100)
[2021-05-08 10:44] LABS: Appearance Urine UA CLEAR; Bilirubin Urine UA NEGATIVE (NEGATIVE); Color Urine UA YELLOW; Glucose Urine UA NEGATIVE (Negative); Ketones Urine UA NEGATIVE (NEGATIVE); Leukocyte Esterase Urine UA NEGATIVE (NEGATIVE); Nitrite Urine UA NEGATIVE (Negative); Occult Blood Urine UA 3+ (Negative); Protein Urine UA TRACE (Negative); Urobilinogen Urine UA 0.2 E.U./dL (0.2); pH Urine UA 5.5 (4.5-8.0)
[2021-05-08 10:45] LABS: Neutrophils Absolute Manual 8080 /uL (3000-5900); Nucleated Red Blood Cells 1 #/Diff; Total Cells Counted 100
[2021-05-08 10:52] LABS: UR Morphine/Opiate cutoff 300 Negative (Negative); Ur Creatinine Normal (Normal); Ur Specific Gravity Normal (Normal); Urine Amphetamines Negative (Negative); Urine Barbiturates Negative (Negative); Urine Benzodiazepines Negative (Negative); Urine Cocaine Negative (Negative); Urine MDMA Negative (Negative); Urine Methamphetamines Negative (Negative); Urine Phencyclidine Negative (Negative); Urine Tetrahydrocannabinol Negative (Negative); Urine pH Normal (Normal)
[2021-05-08 10:53] LABS: Urine Methadone Negative (Negative); Urine Oxycodone Negative (Negative); Urine Tricyclic Antidepressant Negative (Negative)
[2021-05-08 11:04] LABS: Bacteria Urine Few (2-10); Culture Indicated Urine Cult Not Indicated; Hyaline Casts Urine 0-1/LPF; RBC Urine 10-30/HPF (0-5/HPF); Squamous Epithelial Cell Urine 0-1 /HPF (0-5/HPF); WBC Urine 1-5/HPF (0-5/HPF)
--- NOTE | 2021-05-08 15:24 | DI.ECHO.S_ITS ---
+ + [place] [facility] : [facility] S : : [place] : : [place] : : [id number] : : Phone: [phone] Echocardiogram Report + + :Name: TANNER RAMOS Study Date: 05/09/2021 Height: 68 in : :[facility] ReadingLocation: Weight: 363 lb : : Gender: Male BSA: 2.6 m2 : :: 1975 Age: 45 yrs BP: 113/67 mmHg: :Reason For Study: CONGESTIVE HEART FAILURE : :Ordering Physician: TANIA, : :FABIAN Performed By: Raiza Alvarez : :Referring: FABIAN MARIN : + + Interpretation Summary The left ventricle is normal in size. Left ventricular systolic function is normal. The ejection fraction is estimated to be 60-65%. LVEF has not changed since prior study. The interventricular septum is flattened, consistent with a right ventricular pressure/volume condition. Diastolic parameters suggest probable normal left ventricular diastolic function and normal filling pressures. The right ventricle is moderate to severely dilated. Right ventricular systolic function is mildly reduced. Pulmonary artery pressures cannot be estimated because of the lack of a measurable TR jet velocity. The left atrium grossly appears normal in size. Right atrial size is normal. There is no significant valvular heart disease. The ascending aorta is mildly enlarged. Procedure: A two-dimensional transthoracic echocardiogram with color flow and Doppler was performed. The study quality was technically difficult. A contrast injection of Definity was performed to improve assessment of LV function. Comparison is made with the echocardiogram of 09/15/2017. The patient was in sinus rhythm with heart rates between 74-90 bpm during the exam. Left Ventricle: The left ventricle is normal in size. There is mild concentric left ventricular hypertrophy. Left ventricular systolic function is normal. The ejection fraction is estimated to be 60-65%. The interventricular septum is flattened, consistent with a right ventricular pressure/volume condition. Diastolic parameters suggest probable normal left ventricular diastolic function and normal filling pressures. Right Ventricle: The right ventricle is moderate to severely dilated. Right ventricular systolic function is mildly reduced. Atria: The left atrium grossly appears normal in size. Right atrial size is normal. There is no Doppler evidence for an interatrial shunt. Mitral Valve: The mitral valve is normal in structure and function. There is trace mitral regurgitation. Aortic Valve: The aortic valve is trileaflet. The aortic valve is mildly calcified. There is no aortic valve stenosis. No aortic regurgitation is present. Tricuspid Valve: The tricuspid valve is normal in structure and function. There is trace tricuspid regurgitation. Pulmonary artery pressures cannot be estimated because of the lack of a measurable TR jet velocity. Pulmonic Valve: The pulmonic valve leaflets are thin and pliable; valve motion is normal. There is no pulmonic valvular regurgitation. There is no significant valvular heart disease. Great Vessels: The aortic root is normal size. The ascending aorta is mildly enlarged. The IVC is dilated, but has some respiratory collapse suggesting high central venous pressure. Pericardium/ Pleura There is no pericardial effusion. There is no pleural effusion. MMode/2D Measurements & Calculations LVIDd: 5.2 cm LVOT diam: 2.3 cm LVIDs: 3.7 cm Ao root diam: 3.2 cm FS: 29.4 % asc Aorta Diam: 3.5 cm IVSd: 1.3 cm LVPWd: 1.1 cm LV hinton. diameter/BSA (cm/m^2): 2.0 LV sys. diameter/BSA (cm/m^2): 1.4 LA A4 area: 21.1 cm2 RA long axis: 6.0 cm LA length (vol): 5.9 cm RA area: 21.0 cm2 RA vol: 61.7 ml RA : 23.4 ml/m2 IVC diam: 3.5 cm RVD1 (basal): 5.6 cm TAPSE: 1.4 cm Doppler Measurements & Calculations Ao V2 max: 122.1 cm/sec LVOT Max Tray: 77.3 cm/sec Ao V2 mean: 97.6 cm/sec LV V1 max P.4 mmHg Ao max P.0 mmHg LV V1 VTI: 11.9 cm Ao mean P.0 mmHg ESHA(I,D): 2.0 cm2 Ao V2 VTI: 26.0 cm ESHA(V,D): 2.7 cm2 sev ratio: 0.46 ESHA indexed to BSA (cm^2/m^2): 0.75 MV E max tray: 75.6 cm/sec PA V2 max: 96.6 cm/sec MV A max tray: 54.1 cm/sec PA V2 mean: 63.8 cm/sec MV E/A: 1.4 PA mean P.8 mmHg Med Peak E' Tray: 9.4 cm/sec PA pr(Accel): 31.0 mmHg E/E' med: 8.0 Lat Peak E' Tray: 12.4 cm/sec E/E' lat: 6.1 E/e' average: 7.1 MV dec time: 0.21 sec SV(LVOT): 51.4 ml Reading Physician:03:31 PM
--- NOTE | 2021-05-08 16:08 | RT ---
RT left a message for Charlotte at [place] about qualifying patient for home trilogy
[2021-05-08] MEDS: AZITHROMYCIN 500 MG in DEXTROSE 5% IN WATER 250 ML IV (16:54)
[2021-05-08 17:57] LABS: Troponin I < 0.012 ng/mL (0.01-0.034)
--- NOTE | 2021-05-08 19:59 | PM.HP.1 ---
History of Present Illness History of Present Illness Chief complaint: stomach having problems, bloated big time Narrative: Mr. Oreilly is a 45M with DM, HTN, asthma, ALYSA, morbid obesity with BMI of 55 who came in with complaints of having a bloated abdomen. Patient apparently has been having stomach bloating for months. He has noted worsening swelling all over per patient report. He has decreased urine output. His notes him to be sleepier than usual. He developed shortness of breath with the swelling in his abdomen. He has not vomited and his having bowel movements. He has not been having a progressive cough, no chest pain, no fevers, or chills. He has been noted to be morbidly obese, and presumptively thought to have ALYSA but he does not use a CPAP machine. In the ED, vitals were notable for hypoxemia with sats in the 80s. He was placed on oxygen. ABG was done which showed pH of 7.39 pCO2 of 65, pO2 of 48, hco3 of 40. He was started on high flow and planned to switch to BIPAP. WBC 10.1 Na 124, cO2 35, creatinine 0.90. Troponin negative. BNP 844. Chest xray showed possible infiltrate. CTA negative for PE. CT of his abdomen and pelvis showed enlarged liver with nodularity. He also had colonic diverticula with no inflammatory chagnes, but several possible foci of air. He was given IV antibiotics and admitted for further treatment. Patient denies any history of emphysema, or any history of CHF within his family. Patient History Medical History Acute anterior epistaxis Diabetes Fracture closed, nasal bone Hypertension Family & Social History Social History: household members spouse Prior Living Arrangements House Safety & Behavioral: Feels Safe in Current Yes Environment Been Physically Hurt or No Threatened By a Person Suicidal Ideation Description None Suicide Plan Description No Plan Tobacco & Substance use: Smoking Status Never smoker alcohol intake frequency 0-2 drinks per day Substance Use Type does not use Meds Home Medications and Allergies Home Medications Medication Instructions Recorded Confirmed Type carvedilol 25 mg tablet (Coreg) 25 mg PO BID #0 07/01/12 History amlodipine 10 mg tablet 10 mg PO HS #0 08/04/16 05/08/21 History aspirin 81 mg tablet,delayed 81 mg PO QDAY #30 tab 08/04/16 05/08/21 History release fluticasone 250 mcg-salmeterol 50 1 puff INH BID #14 dose 08/04/16 History mcg/dose blistr powdr for inhalation (Advair Diskus) lisinopril 20 1 tab PO QDAY #0 tab 08/04/16 History mg-hydrochlorothiazide 25 mg tablet sildenafil 50 mg tablet (Viagra) 50 mg PO PRN PRN #0 tab 08/04/16 History sitagliptin 100 mg tablet (Januvia) 100 mg PO QDAY #30 tab 08/06/16 Rx Stollings 5 mg-325 mg tablet 1 tab PO Q6H PRN #10 tab NS 02/07/20 05/08/21 Rx (hydrocodone-acetaminophen) Allergies Allergy/AdvReac Type Severity Reaction Status Date / Time No Known Drug Allergies Allergy Verified 05/08/21 13:56 Review of Systems Review of Systems Narrative: 14 systems reviewed and negative aside from what is noted in HPI Exam Vital Signs (past 8 hours): - 05/08/21 12:00 05/08/21 12:03 05/08/21 12:05 Temperature Pulse Rate 78 73 Respiratory Rate 19 20 22 Blood Pressure 101/64 Pulse Oximetry 97 97 05/08/21 12:30 05/08/21 12:31 05/08/21 13:00 Temperature Pulse Rate 66 66 68 Respiratory Rate 12 12 20 Blood Pressure 97/55 L Pulse Oximetry 96 96 97 05/08/21 13:20 05/08/21 13:23 05/08/21 13:30 Temperature Pulse Rate 72 71 68 Respiratory Rate 24 15 Blood Pressure 120/67 120/67 115/71 Pulse Oximetry 96 97 05/08/21 14:30 05/08/21 15:05 05/08/21 15:50 Temperature Pulse Rate 71 71 Respiratory Rate 22 20 Blood Pressure Pulse Oximetry 96 99 96 05/08/21 16:31 05/08/21 17:27 Temperature 97.6 F Pulse Rate 65 72 Respiratory Rate 17 24 Blood Pressure 107/75 Pulse Oximetry 97 96 Fraction of Inspired Oxygen 50 Oxygen Delivery Method Heated High Flow Oxygen Flow Rate 45 Narrative Exam Narrative: GEN: no acute distress, states his abdomen is feeling improved HEENT: moist mucous membranes, PERRL NECK: trachea midline, no JVD CV: regular rate and rhythm, no murmurs PULM: coarse breath sounds bilaterally, diminished breath sounds, no wheezes or crackles ABD: obese, distended, soft, nontender, normal bowel sounds EXT: warm and well perfused, 1-2+ pitting edema SKIN: no rashes noted NEURO: awake, alert and oriented, moving all extremities PSYCH: pleasant Objective Labs Result Diagrams: 05/08/21 07:26 05/08/21 07:26 Labs: Laboratory Results - last 24 hr 05/08/21 05/08/21 05/08/21 07:26 07:26 07:26 WBC 10.1 RBC 5.89 Hgb 13.2 L Hct 42.8 MCV 72.6 L MCH 22.3 L MCHC 30.8 RDW 22.6 H Plt Count 238 Neut % (Auto) Not Reportable Lymph % (Auto) Not Reportable [place] % (Auto) Not Reportable Eos % (Auto) Not Reportable Baso % (Auto) Not Reportable Lymph # (Auto) Not Reportable [place] # (Auto) Not Reportable Baso # (Auto) Not Reportable Total Counted 100 Seg Neutrophils % 80.0 H Lymphocytes % (Manual) 7.0 L Monocytes % (Manual) 12.0 H Eosinophils % (Manual) 1.0 L Neutrophils # (Manual) 8080 H Nucleated RBCs 1 H Platelet Estimate Adequate on smear RBC Morphology See below Polychromasia 2+ H Hypochromasia 1+ H Anisocytosis 2+ H PT INR ABG pH ABG pCO2 ABG pO2 ABG HCO3 ABG Total CO2 ABG O2 Saturation ABG Base Excess FiO2 Sodium Potassium Chloride Carbon Dioxide BUN Creatinine Estimated GFR BUN/Creatinine Ratio Glucose Lactate 1.5 Calcium Magnesium 2.6 H Total Bilirubin AST ALT Alkaline Phosphatase Ammonia Total Creatine Kinase 30 L CK-MB (CK-2) TNP CK-MB (CK-2) Rel Index TNP Troponin I < 0.012 NT-Pro-B Natriuret Pep 844 H Total Protein Albumin Globulin Albumin/Globulin Ratio Lipase 220 Urine Color Urine Appearance Urine pH Ur Specific [place] Urine Protein Urine Glucose (UA) Urine Ketones Urine Occult Blood Urine Nitrate Urine Bilirubin Urine Urobilinogen Ur Leukocyte Esterase Urine RBC Urine WBC Ur Squamous Epith Cells Urine Bacteria Hyaline Casts Ur Culture Indicated? U Opiates 300ng/mL cut Ur Oxycodone Screen Urine Methadone Screen Ur Barbiturates Screen U Tricyclic Antidepress Ur Phencyclidine Scrn Ur Amphetamines Screen U Methamphetamines Scrn Ur MDMA Scrn (Ecstasy) U Benzodiazepines Scrn Urine Cocaine Screen U Marijuana (THC) Screen SARS-CoV-2 (PCR) 05/08/21 05/08/21 05/08/21 07:26 08:05 08:10 WBC RBC Hgb Hct MCV MCH MCHC RDW Plt Count Neut % (Auto) Lymph % (Auto) [place] % (Auto) Eos % (Auto) Baso % (Auto) Lymph # (Auto) [place] # (Auto) Baso # (Auto) Total Counted Seg Neutrophils % Lymphocytes % (Manual) Monocytes % (Manual) Eosinophils % (Manual) Neutrophils # (Manual) Nucleated RBCs Platelet Estimate RBC Morphology Polychromasia Hypochromasia Anisocytosis PT 16.0 H INR 1.4 H ABG pH 7.39 ABG pCO2 65.0 H* ABG pO2 48 L* ABG HCO3 40 H ABG Total CO2 42 H ABG O2 Saturation 82 L* ABG Base Excess 15.0 H FiO2 21 Sodium 124 L Potassium 5.1 Chloride 83 L Carbon Dioxide 35 H BUN 29 H Creatinine 0.90 Estimated GFR > 60.0 BUN/Creatinine Ratio 32.2 H Glucose 128 H Lactate Calcium 9.3 Magnesium Total Bilirubin 1.4 H AST 33 ALT 42 Alkaline Phosphatase 66 Ammonia Total Creatine Kinase CK-MB (CK-2) CK-MB (CK-2) Rel Index Troponin I NT-Pro-B Natriuret Pep Total Protein 8.5 H Albumin 4.2 Globulin 4.3 H Albumin/Globulin Ratio 1.0 Lipase Urine Color Urine Appearance Urine pH Ur Specific [place] Urine Protein Urine Glucose (UA) Urine Ketones Urine Occult Blood Urine Nitrate Urine Bilirubin Urine Urobilinogen Ur Leukocyte Esterase Urine RBC Urine WBC Ur Squamous Epith Cells Urine Bacteria Hyaline Casts Ur Culture Indicated? U Opiates 300ng/mL cut Ur Oxycodone Screen Urine Methadone Screen Ur Barbiturates Screen U Tricyclic Antidepress Ur Phencyclidine Scrn Ur Amphetamines Screen U Methamphetamines Scrn Ur MDMA Scrn (Ecstasy) U Benzodiazepines Scrn Urine Cocaine Screen U Marijuana (THC) Screen SARS-CoV-2 (PCR) 05/08/21 05/08/21 05/08/21 08:10 08:35 10:15 WBC RBC Hgb Hct MCV MCH MCHC RDW Plt Count Neut % (Auto) Lymph % (Auto) [place] % (Auto) Eos % (Auto) Baso % (Auto) Lymph # (Auto) [place] # (Auto) Baso # (Auto) Total Counted Seg Neutrophils % Lymphocytes % (Manual) Monocytes % (Manual) Eosinophils % (Manual) Neutrophils # (Manual) Nucleated RBCs Platelet Estimate RBC Morphology Polychromasia Hypochromasia Anisocytosis PT INR ABG pH ABG pCO2 ABG pO2 ABG HCO3 ABG Total CO2 ABG O2 Saturation ABG Base Excess FiO2 Sodium Potassium Chloride Carbon Dioxide BUN Creatinine Estimated GFR BUN/Creatinine Ratio Glucose Lactate Calcium Magnesium Total Bilirubin AST ALT Alkaline Phosphatase Ammonia 25 Total Creatine Kinase CK-MB (CK-2) CK-MB (CK-2) Rel Index Troponin I NT-Pro-B Natriuret Pep Total Protein Albumin Globulin Albumin/Globulin Ratio Lipase Urine Color Yellow Urine Appearance Clear Urine pH 5.5 Ur Specific [place] 1.010 Urine Protein Trace H Urine Glucose (UA) Negative Urine Ketones Negative Urine Occult Blood 3+ H Urine Nitrate Negative Urine Bilirubin Negative Urine Urobilinogen 0.2 Ur Leukocyte Esterase Negative Urine RBC 10-30/hpf H Urine WBC 1-5/hpf Ur Squamous Epith Cells 0-1 /hpf Urine Bacteria Few (2-10) H Hyaline Casts 0-1/lpf Ur Culture Indicated? Cult not indicated U Opiates 300ng/mL cut Ur Oxycodone Screen Urine Methadone Screen Ur Barbiturates Screen U Tricyclic Antidepress Ur Phencyclidine Scrn Ur Amphetamines Screen U Methamphetamines Scrn Ur MDMA Scrn (Ecstasy) U Benzodiazepines Scrn Urine Cocaine Screen U Marijuana (THC) Screen SARS-CoV-2 (PCR) Negative 05/08/21 05/08/21 10:15 17:10 WBC RBC Hgb Hct MCV MCH MCHC RDW Plt Count Neut % (Auto) Lymph % (Auto) [place] % (Auto) Eos % (Auto) Baso % (Auto) Lymph # (Auto) [place] # (Auto) Baso # (Auto) Total Counted Seg Neutrophils % Lymphocytes % (Manual) Monocytes % (Manual) Eosinophils % (Manual) Neutrophils # (Manual) Nucleated RBCs Platelet Estimate RBC Morphology Polychromasia Hypochromasia Anisocytosis PT INR ABG pH ABG pCO2 ABG pO2 ABG HCO3 ABG Total CO2 ABG O2 Saturation ABG Base Excess FiO2 Sodium Potassium Chloride Carbon Dioxide BUN Creatinine Estimated GFR BUN/Creatinine Ratio Glucose Lactate Calcium Magnesium Total Bilirubin AST ALT Alkaline Phosphatase Ammonia Total Creatine Kinase CK-MB (CK-2) CK-MB (CK-2) Rel Index Troponin I < 0.012 NT-Pro-B Natriuret Pep Total Protein Albumin Globulin Albumin/Globulin Ratio Lipase Urine Color Urine Appearance Urine pH Ur Specific [place] Urine Protein Urine Glucose (UA) Urine Ketones Urine Occult Blood Urine Nitrate Urine Bilirubin Urine Urobilinogen Ur Leukocyte Esterase Urine RBC Urine WBC Ur Squamous Epith Cells Urine Bacteria Hyaline Casts Ur Culture Indicated? U Opiates 300ng/mL cut Negative Ur Oxycodone Screen Negative Urine Methadone Screen Negative Ur Barbiturates Screen Negative U Tricyclic Antidepress Negative Ur Phencyclidine Scrn Negative Ur Amphetamines Screen Negative U Methamphetamines Scrn Negative Ur MDMA Scrn (Ecstasy) Negative U Benzodiazepines Scrn Negative Urine Cocaine Screen Negative U Marijuana (THC) Screen Negative SARS-CoV-2 (PCR) Assessment & Plan Assessment & Plan narrative: Mr. Oreilly is a 45M with PMH DM, HTN, morbid obesity who presents in acute respiratory failure. 1. Acute respiratory failure on chronic respiratory failure -etiology most likely obesity hypoventilation syndrome -also possible etiology of pneumonia noted on xray, has mild bilateral pleural effusions possibly consistent with CHF exacerbation -not a significant smoker, think COPD exacerbation less likely -for now has been started on IV lasix and will continue -order ECHO for further evaluation for possible CHF -for obesity hypoventilation syndrome will trial on bipap -for order for nebulizers PRN -check TSH -ordering non-invasive home ventilator due to emphysema and chronic respiratory failure. this will reduce CO2 and improve respiratory function. BIPAP was considered but deemed ineffective due to severity of the patient's condition. 2. Hyponatremia, acute -etiology unclear currently -patient appears to be volume overloaded -did receive lasix in ED -will continue lasix here and monitor sodium 3. Probable pneumonia, acute -ordered for ceftriaxone and azithromycin -order sputum culture if patient has productive cough 4. Type 2 Diabetes -hold home oral meds -ordered for insulin sliding scale, check glucose achs 5. Hypertension -hold carvedilol, amlodipine, lisinopril/hctz for now, but restart if patient stabilizes 6. Abdominal pain -no evidence of any ascites -has questionable air next to diverticula, for now will treat with IV antibiotics for possible mild diverticulitis, treating with ceftriaxone and metronidazole CODE: FULL PROXY: [place] DVT ppx: Lovevnox SC Quality VTE Deep Vein Thrombosis/Pulmonary Embolism Present on Admission: No MIPS - Admit I confirm the patient?s Advance Care Plan is present, Code status is documented, Surrogate decision maker is in patient?s record [If Yes, STOP here]: Yes
[2021-05-08] MEDS: BUDESONIDE 0.5 MG/2 ML NEB INH (22:08)
[2021-05-08] MEDS: ALBUTEROL 2.5 MG/3 ML NEB (ADULT) INH (22:08)
[2021-05-08] MEDS: SODIUM CHLORIDE 0.9% FLUSH 10 ML IV (22:49)
[2021-05-09] VITALS (26 sets, daily range): BP systolic 113–149; BP diastolic 55–83; PULSE 70–92; RESP 5–22; TEMP 32–37.6; O2SAT 89–97
[2021-05-09 01:08] LABS: TSH w/ Reflex to FT4 3.83 uIU/mL (0.47-4.68)
--- NOTE | 2021-05-09 01:14 | RT ---
Placed pt on V60 BiPAP at 1943 on 05/08/2021. Set pt on AVAPS setting per written order from Dr. Velazquez and [facility] trial, Vt 250-450, RR 5, Max/minimum pressure 30/10, PS Max 20, i-time 0.5 seconds, and 30% FiO2. Pt tolerated. At 2143, checked on pt and RN increased FiO2 to 45% from 30% FiO2 due to earlier acute desat to 87% with good waveform on monitor. Increased Vt to 410 mL as well to give IBW Vt to pt around 6 mL/kg. RN aware. At 0103 on 05/09/2021, increased Vt to 415 mL. Pt had another desat episode to 87%. Pt's SpO2 maintaining 96% now. RN aware.
[2021-05-09] MEDS: DEXTROSE 50 % IN WATER 25 GM/50 ML SYRINGE IV ×7 (02:30→13:07)
[2021-05-09] MEDS: ALBUTEROL 2.5 MG/3 ML NEB (ADULT) INH ×5 (04:34→22:35)
[2021-05-09 04:50] LABS: BUN Creatinine Ratio 34.8 (6-22); Blood Urea Nitrogen 31 mg/dL (9-20); Carbon Dioxide 39 mmol/L (22-32); Chloride 82 mmol/L (98-107); Estimated Glomerular Filt Rate > 60.0 mL/min (>60); Glucose 66 mg/dL (70-100); HEMOLYSIS 29 (0-50); Sodium 125 mmol/L (137-145)
[2021-05-09 04:51] LABS: Potassium 5.8 mmol/L (3.4-5.1)
[2021-05-09 04:56] LABS: Troponin I < 0.012 ng/mL (0.01-0.034)
[2021-05-09 05:53] LABS: HCO3 VBG 41 mmol/L (23-28); Oxygen Saturation VBG 76 % (70-75); PO2 VBG 47 mmHg (35-45); Total CO2 VBG 43 mmol/L (24-29)
[2021-05-09 05:54] LABS: pH VBG 7.31 (7.33-7.43)
--- NOTE | 2021-05-09 06:06 | RT ---
Checked on pt at 0103. Changed Vt from 410 mL to 415 mL. Pt is still within 6-8 mL/kg IBW range. Pt continues have desat episodes throughout the night. Checked on pt at 0309. Increased RR from 5 to 8 due to total RR on BiPAP of 9 on arrival to room. Pt tolerated change and was given verbal OK from CAM Brandon. Pt complained he isn't tolerating BiPAP and wanted to have a break. RN placed pt on 4 LPM NC at 0400, pt's SpO2 95% and pt was tolerating change. Pt became lethargic and placed back on BiPAP at 0523. VBG performed before placing pt on BiPAP and pH 7.397, PvCO2 81, PvO2 36, and SvO2 68% on 4 LPM NC. Discussed with PATHOLOGY SPECIALIST on increasing RR from 8 to 12 on BiPAP to help decrease CO2 and was given OK to change setting. CAM Brandon agreed to let BiPAP help pt breathe better and to draw an ABG later to get better picture of PaCO2.
[2021-05-09] MEDS: metroNIDAZOLE 500 MG/100 ML PIGGYBACK 100 MG IV ×3 (06:23→23:57)
--- NOTE | 2021-05-09 06:46 | PC.NURSE ---
7pm-7am Shift Note-Patient brought to ICU room 229to be on Bi-pap overnight, he tolerated it for 8 hours. RT making adjustments as needed, see RT Notes, in am he is on .45 FIO2, TV 415, 30/10, rate 12, SpO2 >92% at rest. He was on 4L NC from 4am-5am, desats to mid 80s when he sleeps, has significant apnea. CBG checked at 0200 was 48, 1/2 amp D50 given per protocol, rechecked 20 minutes later to be 60, another 1/2 amp D50 given, rechecked to be 70, at that time patient was off Bi-pap and able to drink apple juice, checked CBG again at 0600, it was 67, 1/2 amp D50 given, patient back on Bi-pap and sleeping. SR, 1st AVB, BBB, VSS, denies pain or nausea, 950ml UOP for shift via [place].
[2021-05-09 06:59] LABS: Hematocrit 41.6 % (41-53); Hemoglobin 12.5 g/dL (13.5-17.5); Mean Corpuscular HGB Conc 29.9 % (30-36); Mean Corpuscular Hemoglobin 22.2 PG (26-34); Mean Corpuscular Volume 74.3 fL (80-100); Platelet Count 253 X10^3/uL (150-400); Red Cell Distribution Width 22.6 % (11.6-14.8); White Blood Cell Count 7.6 X10^3/uL (4.5-11.0)
[2021-05-09 07:05] LABS: Add Manual Diff / Slide Review YES
[2021-05-09 08:20] LABS: Neutrophils Absolute Manual 5016 /uL (3000-5900); Total Cells Counted 100
[2021-05-09 08:21] LABS: Anisocytosis 2+; Hypochromasia 2+
[2021-05-09] MEDS: BUDESONIDE 0.5 MG/2 ML NEB INH ×2 (08:26→22:35)
[2021-05-09] MEDS: CALCIUM GLUCONATE 4.65 MEQ in SODIUM CHLORIDE 0.9% 50 ML 180 ML IV (08:52)
[2021-05-09 09:07] LABS: Fractionated Inspired Oxygen 45; HCO3 ABG 40 mmol/L (22-26); Oxygen Saturation ABG 96 % (95-100); PCO2 ABG 85.1 mmHg (35-45); PO2 ABG 100 mmHg (80-100); TCO2 ABG 43 mmol/L (21-31); pH ABG 7.28 (7.35-7.45)
[2021-05-09] MEDS: cefTRIAXone 1,000 MG in SODIUM CHLORIDE 0.9% 100 ML 200 ML IV (09:51)
[2021-05-09] MEDS: FUROSEMIDE 40 MG/4 ML VIAL IV (09:53)
[2021-05-09] MEDS: ENOXAPARIN 40 MG/0.4 ML SYRINGE SUBCUT ×2 (10:03→21:00)
--- NOTE | 2021-05-09 10:38 | PC.NURSE ---
Addendum entered by Heidy Austin R.N. 05/09/21 15:51: Update to , and monitor CBG closely, as Pt has continued on d5w increased to 150mls/hr. Even with hourly checking of blood sugars, the next CBG was less than 20. Pt was able to answer questions, yes/no, and Bipap remained in place, tearful, per , Seems over emotional at conversations. Continue frequent assessments and monitor for any change in neuro status Original Note: Assumed care of Pt @ 0700, Pt is tolerating Bipap, RT following closely. Pt is noted to be groggy and falling asleep mid sentance during assessment RT into address settings and ABG drawn. C02 has worsened, RT with setting change to blow off C02. at bedside and updated about changes to POC. 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 Denies fever prior to admission, but reports forceful cough, productive for weeks prior to admission. Pt with good upper bodystrength, and assist with lift for boost in bed. Diaphoretic, also reporting daily drinking of 2-3 vodka drinks daily, no reported withdrawl s/sx previously. Pt is able to carry conversation better, c/o bipap mask and desire for removal. Next ABG @ 1100.
[2021-05-09 11:40] LABS: Blood Urea Nitrogen 27 mg/dL (9-20); Calcium 9.5 mg/dL (8.4-10.2); Carbon Dioxide 36 mmol/L (22-32); Chloride 86 mmol/L (98-107); Estimated Glomerular Filt Rate > 60.0 mL/min (>60); HEMOLYSIS 23 (0-50); Potassium 4.9 mmol/L (3.4-5.1); Sodium 129 mmol/L (137-145)
[2021-05-09] MEDS: DEXTROSE 5% WATER 1,000 ML 75 ML IV (11:45)
[2021-05-09] MEDS: methylPREDNISolone 125 MG/2 ML VIAL 60 MG IV ×2 (12:11→16:25)
[2021-05-09 12:32] LABS: Glucose 31 mg/dL (70-100)
[2021-05-09 13:36] LABS: pH ABG 7.38 (7.35-7.45)
[2021-05-09 13:38] LABS: Fractionated Inspired Oxygen 35; HCO3 ABG 41 mmol/L (22-26); Oxygen Saturation ABG 96 % (95-100); PCO2 ABG 69.8 mmHg (35-45); PO2 ABG 86 mmHg (80-100); TCO2 ABG 43 mmol/L (21-31)
--- NOTE | 2021-05-09 13:48 | DI.RAD.S_ITS ---
PROCEDURE: XR CHEST FOR PICC 1V INDICATIONS: picc placement COMPARISON: [facility], , XR CHEST 1V, 05/08/2021, 7:57. FINDINGS: PICC was placed by the intravenous therapy team from the left side. Fluoroscopic spot film demonstrates the tip of PICC projecting to the area of proximal SVC. IMPRESSION: Tip of PICC projects to the area of proximal SVC. Dictated by: Annamaria Ladd M.D. on 05/09/2021 at 14:24 Approved by: Annamaria Ladd M.D. on 05/09/2021 at 14:24
[2021-05-09] MEDS: DEXTROSE 10 % IN WATER 1,000 ML 100 ML IV (15:33)
[2021-05-09] MEDS: AZITHROMYCIN 500 MG in DEXTROSE 5% IN WATER 250 ML IV (16:23)
--- NOTE | 2021-05-09 20:41 | PM.PN.1 ---
Subjective Subjective Date Patient Seen: 05/09/21 Time Patient Seen: 08:00 Interval history: He was initially overngiht on BIPAP, then this morning wanted to come off BIPAP. He became confused and was put back on BIPAP. He gradually improved throughout the day improved in his mentation on BIPAP. In addition this morning he had hyperkalemia and received IV insulin, he then became hypoglycemic for several hours and needed multiple pushes of dextrose and needed to start d5w. He had no new complaints. However his provides much more info and notes that patient has been apneic at night for years and has never had any machine to use. He has continued to drink daily. He has declined over months during the pandemic, not leaving the house, gaining weight, and becoming very sleepy and confused during the day. Exam Vital Signs (past 8 hours): - 05/09/21 14:00 05/09/21 14:15 05/09/21 14:25 Temperature Pulse Rate 75 Respiratory Rate 13 Blood Pressure 128/71 128/71 128/71 Pulse Oximetry 94 05/09/21 16:19 05/09/21 17:39 05/09/21 18:31 Temperature 97.5 F L Pulse Rate 80 87 Respiratory Rate 12 18 Blood Pressure 131/74 148/83 H Pulse Oximetry 89 L 95 05/09/21 19:40 Temperature 97.6 F Pulse Rate 89 Respiratory Rate 14 Blood Pressure 149/66 H Pulse Oximetry 93 Fraction of Inspired Oxygen 35 Oxygen Delivery Method Nasal Cannula Oxygen Flow Rate 3 Narrative Exam Narrative: GEN: no acute distress, states his abdomen is feeling improved HEENT: moist mucous membranes, PERRL NECK: trachea midline, no JVD CV: regular rate and rhythm, no murmurs PULM: coarse breath sounds bilaterally, diminished breath sounds, no wheezes or crackles ABD: obese, distended, soft, nontender, normal bowel sounds EXT: warm and well perfused, 1-2+ pitting edema SKIN: no rashes noted NEURO: awake, alert and oriented, moving all extremities PSYCH: pleasant Objective Labs Result Diagrams: 05/09/21 04:05 05/09/21 11:20 Labs: Laboratory Results - last 24 hr 05/08/21 05/08/21 05/08/21 07:26 08:08 22:05 WBC RBC Hgb Hct MCV MCH MCHC RDW Plt Count Neut % (Auto) Lymph % (Auto) [place] % (Auto) Eos % (Auto) Baso % (Auto) Lymph # (Auto) [place] # (Auto) Baso # (Auto) Total Counted Seg Neutrophils % Lymphocytes % (Manual) Monocytes % (Manual) Eosinophils % (Manual) Neutrophils # (Manual) RBC Morphology Hypochromasia Anisocytosis ABG pH 7.39 ABG pCO2 65.0 H* ABG pO2 48 L* ABG HCO3 40 H ABG Total CO2 42 H ABG O2 Saturation 82 L* ABG Base Excess 15.0 H VBG pH VBG pCO2 VBG pO2 VBG HCO3 VBG Total CO2 VBG O2 Saturation VBG Base Excess FiO2 21 Sodium Potassium Chloride Carbon Dioxide BUN Creatinine Estimated GFR BUN/Creatinine Ratio Glucose Calcium Troponin I TSH 3.83 Nasal Screen MRSA (PCR) Negative for mrsa 05/09/21 05/09/21 05/09/21 04:05 04:05 04:05 WBC 7.6 RBC 5.60 Hgb 12.5 L Hct 41.6 MCV 74.3 L MCH 22.2 L MCHC 29.9 L RDW 22.6 H Plt Count 253 Neut % (Auto) Not Reportable Lymph % (Auto) Not Reportable [place] % (Auto) Not Reportable Eos % (Auto) Not Reportable Baso % (Auto) Not Reportable Lymph # (Auto) Not Reportable [place] # (Auto) Not Reportable Baso # (Auto) Not Reportable Total Counted 100 Seg Neutrophils % 66.0 Lymphocytes % (Manual) 24.0 L Monocytes % (Manual) 6.0 Eosinophils % (Manual) 4.0 Neutrophils # (Manual) 5016 RBC Morphology Not Reportable Hypochromasia 2+ H Anisocytosis 2+ H ABG pH ABG pCO2 ABG pO2 ABG HCO3 ABG Total CO2 ABG O2 Saturation ABG Base Excess VBG pH VBG pCO2 VBG pO2 VBG HCO3 VBG Total CO2 VBG O2 Saturation VBG Base Excess FiO2 Sodium 125 L Potassium 5.8 H Chloride 82 L Carbon Dioxide 39 H BUN 31 H Creatinine 0.89 Estimated GFR > 60.0 BUN/Creatinine Ratio 34.8 H Glucose 66 L Calcium 9.0 Troponin I < 0.012 TSH Nasal Screen MRSA (PCR) 05/09/21 05/09/21 05/09/21 05:26 08:54 11:20 WBC RBC Hgb Hct MCV MCH MCHC RDW Plt Count Neut % (Auto) Lymph % (Auto) [place] % (Auto) Eos % (Auto) Baso % (Auto) Lymph # (Auto) [place] # (Auto) Baso # (Auto) Total Counted Seg Neutrophils % Lymphocytes % (Manual) Monocytes % (Manual) Eosinophils % (Manual) Neutrophils # (Manual) RBC Morphology Hypochromasia Anisocytosis ABG pH 7.28 L* ABG pCO2 85.1 H* ABG pO2 100 ABG HCO3 40 H ABG Total CO2 43 H ABG O2 Saturation 96 ABG Base Excess 13.0 H VBG pH 7.31 L VBG pCO2 81.0 H VBG pO2 47 H VBG HCO3 41 H VBG Total CO2 43 H VBG O2 Saturation 76 H VBG Base Excess 14.0 H FiO2 45 Sodium 129 L Potassium 4.9 Chloride 86 L Carbon Dioxide 36 H BUN 27 H Creatinine 0.75 Estimated GFR > 60.0 BUN/Creatinine Ratio 36.0 H Glucose 31 L* Calcium 9.5 Troponin I TSH Nasal Screen MRSA (PCR) 05/09/21 12:13 WBC RBC Hgb Hct MCV MCH MCHC RDW Plt Count Neut % (Auto) Lymph % (Auto) [place] % (Auto) Eos % (Auto) Baso % (Auto) Lymph # (Auto) [place] # (Auto) Baso # (Auto) Total Counted Seg Neutrophils % Lymphocytes % (Manual) Monocytes % (Manual) Eosinophils % (Manual) Neutrophils # (Manual) RBC Morphology Hypochromasia Anisocytosis ABG pH 7.38 ABG pCO2 69.8 H* ABG pO2 86 ABG HCO3 41 H ABG Total CO2 43 H ABG O2 Saturation 96 ABG Base Excess 16.0 H VBG pH VBG pCO2 VBG pO2 VBG HCO3 VBG Total CO2 VBG O2 Saturation VBG Base Excess FiO2 35 Sodium Potassium Chloride Carbon Dioxide BUN Creatinine Estimated GFR BUN/Creatinine Ratio Glucose Calcium Troponin I TSH Nasal Screen MRSA (PCR) [facility] Medical History Acute anterior epistaxis Diabetes Fracture closed, nasal bone Hypertension Social History household members: spouse Smoking Status: Never smoker Assessment & Plan Assessment & Plan narrative: Mr. Oreilly is a 45M with PMH DM, HTN, morbid obesity who presents in acute respiratory failure. 1. Acute respiratory failure on chronic respiratory failure -etiology probable obesity hypoventilation syndrome for severe obstructive sleep apnea -also possible etiology of pneumonia noted on xray, has mild bilateral pleural effusions possibly consistent with CHF exacerbation -not a significant smoker, think COPD exacerbation less likely, however he will continue on steroids, and nebulizers -for now has been started on IV lasix and will continue -ECHO showed preserved EF but depressed RV function, concerning for pulmonary hypertension and right sided heart failure secondary to obstructive sleep apnea -for obesity hypoventilation syndrome will trial on bipap -continue on antibiotics for now with ceftiraxone, azithromycin for possible pneumonia -check TSH -ordering non-invasive home ventilator due to emphysema and chronic respiratory failure. this will reduce CO2 and improve respiratory function. BIPAP was considered but deemed ineffective due to severity of the patient's condition. 2. Acute on chronic right sided heart failure -CTA negative for PE -patient has probable long history of obstructive sleep apnea as likely cause -continue IV lasix for diuresis 3. Hyponatremia, acute -etiology unclear currently -patient appears to be volume overloaded -did receive lasix in ED -will continue lasix here and monitor sodium 4. Type 2 Diabetes with hypoglycemia -hold home oral meds -ordered for insulin sliding scale, check glucose achs 5. Hypertension -hold carvedilol, amlodipine, lisinopril/hctz for now, but restart if patient stabilizes 6. Abdominal pain -no evidence of any ascites -has questionable air next to diverticula, for now will treat with IV antibiotics for possible mild diverticulitis, treating with ceftriaxone and metronidazole CODE: FULL PROXY: Coral DVT ppx: Lovevnox SC Quality VTE Deep Vein Thrombosis/Pulmonary Embolism Present on Admission: No
[2021-05-09] MEDS: FUROSEMIDE 20 MG/2 ML VIAL 40 MG IV (20:59)
[2021-05-09] MEDS: SODIUM CHLORIDE 0.9% FLUSH 10 ML IV (20:59)
[2021-05-09] MEDS: INSULIN LISPRO 100 UNIT/ML 3ML VIAL SUBCUT (22:06)
[2021-05-10] VITALS (16 sets, daily range): BP systolic 124–161; BP diastolic 58–87; PULSE 90–109; RESP 16–33; TEMP 36.6–37; O2SAT 90–98
--- NOTE | 2021-05-10 01:29 | RT ---
Checked on pt's BiPAP at 0047. I observed pt desat to 86% on BiPAP settings of 22/8, 35% FiO2, and RR 18 twice. Increased pt's RR to 20, and IPAP/EPAP to 24/10 keeping the same change in pressure. Increased FiO2 momentarily to 50% to increase SpO2 and SpO2 improved to 97%. Titrated pt back to 35% FiO2. Was given verbal OK by CAM Brandon on changes on BiPAP settings. Pt may have underlying central sleep apnea in addition to ALYSA.
--- NOTE | 2021-05-10 02:50 | PC.NURSE ---
Patient is A/Ox4, no complaints of pain. Patient is on bipap current settings at end of shift /, FiO2 35%, RR 20. Patient is tolerated bipap well after taking a break to eat dinner. On previous bipap setting severe sleep apnea was noted with patient desatting to 70% despite wearing bipap. Patient needs more education on ALYSA and current health condition. Patient on IV antibiotics for possible pneumonia and diverticulitis. Patient's abdomen is distended and firm. No complaints of discomfort. When offered bowel medications if ordered, patient declined saying he doesn't feel like he needs to have a BM and will wait until morning. Patient has a PICC line and kebede, with over 2L of UO after receiving IV lasix. Call light within reach.
[2021-05-10 05:42] LABS: Hemoglobin 12.2 g/dL (13.5-17.5); Mean Corpuscular HGB Conc 29.8 % (30-36); Mean Corpuscular Hemoglobin 22.2 PG (26-34); Mean Corpuscular Volume 74.4 fL (80-100); Platelet Count 214 X10^3/uL (150-400); Red Blood Cell Count 5.52 X10^6/uL (4.5-5.9); Red Cell Distribution Width 21.9 % (11.6-14.8); White Blood Cell Count 6.3 X10^3/uL (4.5-11.0)
[2021-05-10 05:48] LABS: BUN Creatinine Ratio 26.5 (6-22); Blood Urea Nitrogen 18 mg/dL (9-20); Calcium 8.9 mg/dL (8.4-10.2); Chloride 85 mmol/L (98-107); Estimated Glomerular Filt Rate > 60.0 mL/min (>60); Glucose 319 mg/dL (70-100); HEMOLYSIS < 15 (0-50); Potassium 5.2 mmol/L (3.4-5.1); Sodium 129 mmol/L (137-145)
[2021-05-10 05:58] LABS: Carbon Dioxide 40 mmol/L (22-32)
[2021-05-10] MEDS: ALBUTEROL 2.5 MG/3 ML NEB (ADULT) INH ×4 (09:11→22:48)
[2021-05-10] MEDS: BUDESONIDE 0.5 MG/2 ML NEB INH (09:12)
[2021-05-10] MEDS: THIAMINE 100 MG TABLET PO (09:26)
[2021-05-10] MEDS: cefTRIAXone 1,000 MG in SODIUM CHLORIDE 0.9% 100 ML 200 ML IV (09:26)
[2021-05-10] MEDS: MULTIVITAMIN 1 TABLET 1 TAB PO (09:26)
[2021-05-10] MEDS: FOLIC ACID 1 MG TABLET PO (09:27)
[2021-05-10] MEDS: predniSONE 20 MG TABLET 40 MG PO (09:27)
[2021-05-10] MEDS: metroNIDAZOLE 500 MG/100 ML PIGGYBACK 100 MG IV ×3 (09:27→22:43)
[2021-05-10] MEDS: ENOXAPARIN 40 MG/0.4 ML SYRINGE SUBCUT ×2 (09:27→20:42)
[2021-05-10] MEDS: SODIUM CHLORIDE 0.9% FLUSH 10 ML IV ×3 (09:28→18:55)
[2021-05-10] MEDS: INSULIN LISPRO 100 UNIT/ML 3ML VIAL SUBCUT ×4 (09:29→20:35)
--- NOTE | 2021-05-10 10:19 | PM.PN.1 ---
Subjective Subjective Date Patient Seen: 05/10/21 Time Patient Seen: 09:00 Interval history: Overnight he did well. He did require BIPAP overnight, but has come off it this AM and is feeling more awake but still bloated. Exam Vital Signs (past 8 hours): Fraction of Inspired Oxygen 45 Oxygen Delivery Method Nasal Cannula Oxygen Flow Rate 1 Narrative Exam Narrative: GEN: no acute distress, states his abdomen is feeling improved HEENT: moist mucous membranes, PERRL NECK: trachea midline, no JVD CV: regular rate and rhythm, no murmurs PULM: coarse breath sounds bilaterally, diminished breath sounds, no wheezes or crackles ABD: obese, distended, soft, nontender, normal bowel sounds EXT: warm and well perfused, 1-2+ pitting edema SKIN: no rashes noted NEURO: awake, alert and oriented, moving all extremities PSYCH: pleasant Objective Labs Result Diagrams: 05/12/21 05:00 05/12/21 05:00 [facility] Medical History Acute anterior epistaxis Diabetes Fracture closed, nasal bone Hypertension Social History household members: spouse Smoking Status: Never smoker Assessment & Plan Assessment & Plan narrative: Mr. Oreilly is a 45M with PMH DM, HTN, morbid obesity who presents in acute respiratory failure. 1. Acute respiratory failure on chronic respiratory failure -etiology probable obesity hypoventilation syndrome for severe obstructive sleep apnea -also possible etiology of pneumonia noted on xray, has mild bilateral pleural effusions possibly consistent with CHF exacerbation -not a significant smoker, think COPD exacerbation less likely, however he will continue on steroids, and nebulizers -for now has been started on IV lasix and will continue -ECHO showed preserved EF but depressed RV function, concerning for pulmonary hypertension and right sided heart failure secondary to obstructive sleep apnea -for obesity hypoventilation syndrome will trial on bipap -continue on antibiotics for now with ceftiraxone, azithromycin for possible pneumonia -check TSH -ordering non-invasive home ventilator due to emphysema and chronic respiratory failure. this will reduce CO2 and improve respiratory function. BIPAP was considered but deemed ineffective due to severity of the patient's condition. 2. Acute on chronic right sided heart failure -CTA negative for PE -patient has probable long history of obstructive sleep apnea as likely cause -continue IV lasix for diuresis 3. Hyponatremia, acute -etiology unclear currently -patient appears to be volume overloaded -did receive lasix in ED -will continue lasix here and monitor sodium 4. Type 2 Diabetes with hypoglycemia -hold home oral meds -ordered for insulin sliding scale, check glucose achs 5. Hypertension -hold carvedilol, amlodipine, lisinopril/hctz for now, but restart if patient stabilizes 6. Abdominal pain -no evidence of any ascites -has questionable air next to diverticula, for now will treat with IV antibiotics for possible mild diverticulitis, treating with ceftriaxone and metronidazole CODE: FULL PROXY: Coral DVT ppx: Lovevnox SC Quality VTE Deep Vein Thrombosis/Pulmonary Embolism Present on Admission: No
[2021-05-10 10:24] LABS: pH ABG 7.39 (7.35-7.45)
[2021-05-10 10:25] LABS: HCO3 ABG 44 mmol/L (22-26); Oxygen Saturation ABG 91 % (95-100); PCO2 ABG 73.1 mmHg (35-45); PO2 ABG 65 mmHg (80-100); TCO2 ABG 46 mmol/L (21-31)
[2021-05-10 10:26] LABS: Fractionated Inspired Oxygen 28
[2021-05-10 13:38] LABS: BUN Creatinine Ratio 28.3 (6-22); Blood Urea Nitrogen 17 mg/dL (9-20); Calcium 9.5 mg/dL (8.4-10.2); Chloride 86 mmol/L (98-107); Estimated Glomerular Filt Rate > 60.0 mL/min (>60); Glucose 217 mg/dL (70-100); HEMOLYSIS 45 (0-50); Potassium 5.2 mmol/L (3.4-5.1); Sodium 132 mmol/L (137-145)
[2021-05-10 13:44] LABS: Carbon Dioxide 37 mmol/L (22-32)
--- NOTE | 2021-05-10 16:35 | CM.IDA ---
Initial DCP Assessment Note Patient is a 45 yo male, resident of [place]. Patient presents w/feeling bloated for months, w/worsening swelling and decreased urine output. Patient admitted to the ICU for acute resp failure; etiology probable obesity hypoventilation syndrome for severe obstructive sleep apnea Patient now awaiting delivery of trilogy to trial here and use at home. PCP: Gonzalez Britt Payer: out of state [employer] Met w/patient and his Coral, introduced role. Patient typically indp. 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 Patient states he had been out of work and paying for [employer] medical insurance had been too expensive, so he did not have medical insurance for months. Patient admits this was a barrier to seeking medical help. Patient has not been feeling good for months; sleepy throughout the day, sedentary, and admits to daily drinking but says he never drinks to the point of getting drunk or blacking out. Patient has been working again, got insurance reinstated which motivated him to seek medical help. Patient looking forward to getting the trilogy in hopes he will begin to feel better throughout the day. Patient doesn't expect to have any needs from this [employer] [facility], does not need HH at this time. Patient hopes to return to work as soon as possible. Spouse Coral works from home and can assist patient upon return home, as needed. Patient/spouse have discussed patient's alcohol use, patient does not intend to quit, does not admit to having a problem w/over use of alcohol; states that he is in control of his use and can stop as needed. Patient denies resources for sobriety support/treatment/recovery at this time. This [facility] will plan to follow closely in case any DC needs or concerns arise; expect home w/spouse and close outpatient f/u NABIL Ribera
[2021-05-10] MEDS: AZITHROMYCIN 500 MG in DEXTROSE 5% IN WATER 250 ML IV (17:05)
[2021-05-11] VITALS (15 sets, daily range): BP systolic 146–179; BP diastolic 73–106; PULSE 89–114; RESP 15–24; TEMP 31–37.7; O2SAT 88–98
--- NOTE | 2021-05-11 06:08 | PC.NURSE ---
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 Patient also noted to 'twitch' during apnea, sleeps 'fitfully'. SR/ST 1st degree AVB, BBB, HR increases with apnea. SpO2 90-97% on 2L NC when awake. Ambulated into BR, mild shortness of breath, had large loose brown stool. CBG at 0200 169.
[2021-05-11] MEDS: metroNIDAZOLE 500 MG/100 ML PIGGYBACK 100 MG IV ×2 (06:59→15:16)
[2021-05-11] MEDS: ALBUTEROL 2.5 MG/3 ML NEB (ADULT) INH ×4 (08:19→19:14)
[2021-05-11] MEDS: BUDESONIDE 0.5 MG/2 ML NEB INH ×2 (08:28→19:21)
[2021-05-11 09:30] LABS: Hematocrit 42.1 % (41-53); Hemoglobin 12.5 g/dL (13.5-17.5); Mean Corpuscular HGB Conc 29.7 % (30-36); Mean Corpuscular Hemoglobin 22.1 PG (26-34); Mean Corpuscular Volume 74.2 fL (80-100); Platelet Count 218 X10^3/uL (150-400); Red Blood Cell Count 5.67 X10^6/uL (4.5-5.9); White Blood Cell Count 9.3 X10^3/uL (4.5-11.0)
[2021-05-11] MEDS: cefTRIAXone 1,000 MG in SODIUM CHLORIDE 0.9% 100 ML 200 ML IV (09:33)
[2021-05-11] MEDS: ENOXAPARIN 40 MG/0.4 ML SYRINGE SUBCUT ×2 (09:36→20:50)
[2021-05-11] MEDS: predniSONE 20 MG TABLET 40 MG PO (09:36)
[2021-05-11] MEDS: THIAMINE 100 MG TABLET PO (09:36)
[2021-05-11] MEDS: MULTIVITAMIN 1 TABLET 1 TAB PO (09:37)
[2021-05-11] MEDS: FOLIC ACID 1 MG TABLET PO (09:37)
[2021-05-11 09:38] LABS: Blood Urea Nitrogen 14 mg/dL (9-20); Calcium 9.3 mg/dL (8.4-10.2); Chloride 91 mmol/L (98-107); Estimated Glomerular Filt Rate > 60.0 mL/min (>60); Glucose 96 mg/dL (70-100); HEMOLYSIS < 15 (0-50); Magnesium 1.9 mg/dL (1.6-2.3); Potassium 4.5 mmol/L (3.4-5.1); Sodium 137 mmol/L (137-145)
[2021-05-11] MEDS: SODIUM CHLORIDE 0.9% FLUSH 10 ML IV ×3 (09:38→20:51)
[2021-05-11 09:49] LABS: Carbon Dioxide 40 mmol/L (22-32)
--- NOTE | 2021-05-11 13:05 | PT.IIE ---
Current Diagnoses Acute and chronic respiratory failure, unspecified whether with hypoxia or hypercapnia (05/08/21) Medical History (Last Reviewed 05/08/21 @ 20:09 by Ritchie Velazquez MD) Acute anterior epistaxis Diabetes Fracture closed, nasal bone Hypertension Physical Therapy Inpatient Evaluation/Re-Eval M1 PT/OT-IP Prior Functional Status Start: 05/11/21 14:33 Freq: NEEDED Status: Active Protocol: Document 05/11/21 13:05 AB (Rec: 05/11/21 14:47 AB [id number]) Medical Review Prior Functional Status Medical History Reviewed Yes Communication able to make needs known Mobility and Gait pt stated that he is indpeendent with all mobilities and ambulation without AD Social History Household Members spouse Living Arrangements House Number of Floors (Floors) Two Floors Number of Stairs To Enter/Railing? 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 M2 PT-IP Current Condition Start: 05/11/21 14:33 Freq: NEEDED Status: Active Protocol: Document 05/11/21 13:05 AB (Rec: 05/11/21 14:47 AB [id number]) Physical Therapy Current Condition Current Condition Evaluation Date 05/11/21 Treatment Diagnosis PNA; acute respiratory failure ; difficulty in walking Onset Date 05/08/21 Precautions Other Precautions O2 sat M3 PT-IP Subjective Start: 05/11/21 14:33 Freq: NEEDED Status: Active Protocol: Document 05/11/21 13:05 AB (Rec: 05/11/21 14:47 AB [id number]) Subjective Physical Therapy Visit Type Type Initial Evaluation Visit Start Time 13:05 Visit Stop Time 13:30 Total Visit Minutes 25 Number of WOOD PILER Visits 0 Physical Therapy Visit Comments Patient Comments agreeable to do PT Therapy Pain Assessment Pain Present Pain Present Denied Pain M4 PT-IP Mobility and Gait Start: 05/11/21 14:33 Freq: NEEDED Status: Active Protocol: Document 05/11/21 13:05 AB (Rec: 05/11/21 14:47 AB [id number]) PT-Bed Mobility Assessment Supine to Sit Supine to Sit Independent Sit to Supine Sit to Supine Independent PT-Transfer Assessment Sit to and From Stand Sit to and from Stand Standby Assistance,1 Person Assistance,Use of Upper Extremities Equipment Transfer Assistive Device None Orthotic/Prosthetic Devices or Brace: No Transfers Transfer Destination Bed,Chair Transfer Technique ambulated without AD Transfer Ability Level of Assist Independent Comments Mobility Comments pt seated on chair and agreed to do PT. O2 sat with 2L/min O2 at 94%. nurse stated that pt can wean off O2. O2 sat at room air: 92-93%. pt completed sit to stand from chair SBA and ambulated to the bed ~ 12 ft without AD SBA. O2 sat decreased to 79%. cued for PLB and O2 was put back on. O2 sat increased to 90% after ~ 20 sec. pt completed sit<>supine independent. ambulated in room ~ 40 ft without AD SBA. O2 sat decreased to 85% and instructed to sit and do deep breathing. O2 sat increased to 91% after ~ 10-15 sec. pt rested. agreed to ambulated again and completed 60ft without AD SBA and O2 sat decreased to 84%. pt sat to rest and cued for deep breathing O2 sat increased to 93% after ~ 10 sec. positioned pt in bed. call light and table within reach. encouraged pt to ambulated with nurses and agreed. informed nurse regarding pt's mobility and o2 sat. Gait Assessment Gait Gait Assistance Required: Standby Assistance Distance (Feet) 30 Able to Maintain Weight Bearing Status Yes During Gait Assistive Devices Assistive Device None Orthotic/Prosthetic Devices or Brace: No Factors Limiting Gait Function Factors Limiting Gait Function Decreased Activity Tolerance, Respiratory Distress Comments Gait Comments pls refer to mobility section for details PT-Balance Assessment Sitting Balance and Reactions Static Sitting Balance Ability Normal Dynamic Sitting Balance Ability Normal Standing Balance and Reactions Static Standing Balance Ability Good Dynamic Standing Balance Ability Good Device Used without AD M5 PT-IP Objective Assessments Start: 05/11/21 14:33 Freq: NEEDED Status: Active Protocol: Document 05/11/21 13:05 AB (Rec: 05/11/21 14:47 AB [id number]) Orientation Orientation/Cognition Level of Alertness Alert Orientation Name,Age,Birthday,Month,Date, Year,Day of Week,Place, Situation Language Function Ability No Deficits Noted Safety Awareness Understands Safety Issues Memory Description No Deficits Noted Gross Range of Motion Lower Extremity ROM Assessment Within Functional Limits Strength Lower Extremity Strength Assessment Within Functional Limits Coordination Assessment Gross Coordination Gross Coordination WNL Muscle Tone Muscle Tone WNL Yes M6 PT-IP Treatment Start: 05/11/21 14:33 Freq: NEEDED Status: Active Protocol: Document 05/11/21 13:05 AB (Rec: 05/11/21 14:47 AB [id number]) Physical Therapy Treatment Education Education Provided Safety M7 PT-IP Assessment and Plan Start: 05/11/21 14:33 Freq: NEEDED Status: Active Protocol: Document 05/11/21 13:05 AB (Rec: 05/11/21 14:47 AB [id number]) PT Summary Assessment and Plan Potential Rehabilitation Potential Good Status of Condition at Evaluation Evolving Summary Impairments Pain,ROM,Strength,Balance, Coordination,Sensation,Tone, Cognition,Bed Mobility, Transfers,Gait,Activity Tolerance Assessment Summary pt requiring SBA with transfers and ambulation without AD but with decrease in O2 sat to 79% at room air and to 84% with 2L/min O2 on. will continue to see pt for PT to improve activity tolerance mobility mobility independence for safe d/c home . pt stated that his spouse will be able to assist him if needed. Goals Transfer Goal Independent Gait Goal Independent Gait Distance 200 Days to Meet Goals 5 Frequency of Treatment Frequency Of Treatment Once a Day Treatment Plan Physical Therapy Treatment Plan Bed Mobility Training,Transfer Training,Gait Training, Therapeutic Exercise,Balance Retraining,Discharge Planning, Neuromuscular Re-ed, Coordination Retraining Precautions Other Precautions O2 sat Recommendations To Nursing Amount of Assist Needed Standby Assistance Discharge Recommendations PT Discharge Recommendations Home Transportation Needs at Discharge Private Vehicle
--- NOTE | 2021-05-11 13:39 | DIET.PN ---
Dietary Progress Note Assessment: 45y M c pmhx of DM, HTN, asthma, ALYSA, morbid obesity (BMI 52.3) admitted for reported stomach problems and bloating referred to nutrition for morbid obesity. Pt has acute on chronic respiratory failure. RT team is trialing variety of masks/products prior to d/c. Pt was laid off during the global pandemic at which time he did not have a schedule so snacked and drank throughout the day and was sedentary. Pt went back on the job April 16 of this year which he feels helps him keep healthier habits as he works 5-6d/w and has to plan his meals, does not have time for snacking. Pt was dx c DM2 7 or 8y ago and attended DSME classes but didn't feel they helped him much. 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 Pt uses a gallon bucket to collect urine during his shift in his cab. Pt generally does not eat breakfast or lunch but makes up for it in the evening with large portions at dinner and a few cocktails. HT: 172.7cm WT:156kg BMI: 52.3 Labs: CO2 40 H, swings in BG from 31 to 319 this admission, K+ 5.2 Nutrition Diagnosis: morbid obesity r/t undesirable food choices and food timing aeb BMI 52.3, pt reports not eating during first half of day and making up for it during second half of day, pt sedentary behavior including at work, pt laid off for past year when he spent days eating and drinking etoh. Interventions: 1. Discussed role of carb consistent diet both in good DM management but also for ease of breathing. Discussed appropriate portion sizes of high carb foods and to avoid refined ultraprocessed food items. 2. Discussed pts high protein need in context of body habitus as well as back loading his meals to the evening time. Discussed trial of bariatric ONS protein drink or bariatric protein bar as easy alternative to build meal structure while working in [place]. Diet Order: Renal (potassium restriction) EER: 2,300kcal (15kcal/kg per obese), 125g PRO (0.8g/kg)
--- NOTE | 2021-05-11 15:12 | PC.NURSE ---
PT TOLERATED TRILOGY POORLY OVERNIGHT- NASAL MASK ONLY PROVIDED AND A MOUTH BREATHER HE DID NOT DO WELL- HE BACAME HYPOXIC AND REQUIRED GOING BACK ON HOSPITAL BIPAP WITH INCREASED PRESSURES OF 24/10 AND FIO2 OF 45%- DURING DAY HE WAS UP IN CHAIR HE WAS ON 2L NC AND WOULD HAVE OCCASIONAL APNEIC EPISODES PER HIS USAUL AND THIS RN WITNESSED GOOD PLETH AND SPO2 READING OF 3( % - AWAKENED PT AND HE SEEMED DAZED AND TOOK 1-2 MINUTES TO ACTUALLY WAKE UP AND CONVERSE- AWAITING ARRIVAL OF Ataxion TECH TO BRING MASK OPTIONS
[2021-05-11] MEDS: acetaZOLAMIDE 250 MG TABLET PO (15:19)
[2021-05-11] MEDS: FUROSEMIDE 40 MG/4 ML VIAL IV (15:20)
[2021-05-11] MEDS: AZITHROMYCIN 500 MG in DEXTROSE 5% IN WATER 250 ML IV (16:33)
[2021-05-11] MEDS: INSULIN LISPRO 100 UNIT/ML 3ML VIAL SUBCUT ×2 (16:37→20:47)
--- NOTE | 2021-05-11 18:12 | P.PN_ITS ---
Subjective Subjective Date Patient Seen: 05/11/21 Time Patient Seen: 08:00 Interval history: This morning Mr. Oreilly is feeling much improved. He feels slightly less bloated. He notes he had a bad night with being unable to sleep. He did have trilogy machine delivered, but unfortunately only the nasal mask. He failed quite quickly with hypoxemia in the 60s noted. He was placed back on BIPAP overnight. This morning attempts are being made to get him a full face m ask and reattempt trilogy tonight. Otherwise he is feeling improved. Exam Vital Signs (past 8 hours): - 05/11/21 11:18 05/11/21 11:55 05/11/21 15:22 Temperature 98.6 F Pulse Rate 96 H 95 H 101 H Respiratory Rate 16 19 20 Blood Pressure 153/94 H Pulse Oximetry 96 94 96 05/11/21 16:20 Temperature 99.8 F H Pulse Rate 104 H Respiratory Rate 15 Blood Pressure 179/106 H Pulse Oximetry 93 Fraction of Inspired Oxygen 45 Oxygen Delivery Method Nasal Cannula Oxygen Flow Rate 2 Narrative Exam Narrative: GEN: no acute distress, states his abdomen is feeling improved HEENT: moist mucous membranes, PERRL NECK: trachea midline, no JVD CV: regular rate and rhythm, no murmurs PULM: coarse breath sounds bilaterally, diminished breath sounds, no wheezes or crackles ABD: obese, soft, nontender, normal bowel sounds EXT: warm and well perfused, 1-2+ pitting edema SKIN: no rashes noted NEURO: awake, alert and oriented, moving all extremities PSYCH: pleasant Objective Labs Result Diagrams: 05/11/21 09:15 05/11/21 09:15 Labs: Laboratory Results - last 24 hr 05/11/21 05/11/21 05/11/21 09:15 09:15 09:15 WBC 9.3 RBC 5.67 Hgb 12.5 L Hct 42.1 MCV 74.2 L MCH 22.1 L MCHC 29.7 L RDW 22.0 H Plt Count 218 Sodium 137 Potassium 4.5 Chloride 91 L Carbon Dioxide 40 H* BUN 14 Creatinine 0.56 L Estimated GFR > 60.0 BUN/Creatinine Ratio 25.0 H Glucose 96 D Calcium 9.3 Magnesium 1.9 PFSH Medical History Acute anterior epistaxis Diabetes Fracture closed, nasal bone Hypertension Social History household members: spouse Smoking Status: Never smoker Assessment & Plan Assessment & Plan narrative: Mr. Oreilly is a 45M with PMH DM, HTN, morbid ob esity who presents in acute hypoxemic and hypercarbic respiratory failure. 1. 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 severe obstructive sleep apnea due to morbid obesity BMI of 52 -has mild bilateral pleural effusions possibly consistent with CHF exacerbation -not a significant smoker, think COPD exacerbation less likely, stop steroids -for now has been started on IV lasix and will continue, will add acetazolamide on 05/11 as one time dose for elevated bicarbonate at 40 -ECHO showed preserved EF but depressed RV function, concerning for pulmonary hypertension and right sided heart failure secondary to obstructive sleep apnea -for obesity hypoventilation syndrome has improved on BIPAP, will setup for trilogy to md home after successful trial here -will need outpatient sleep study, and likely bipap as an outpatient -initially on antibiotics for possible pneumonia, but suspicion low so will stop -check TSH- normal -encouraged weight loss to help with ALYSA 2. Acute on chronic right sided heart failure -CTA negative for PE -patient has probable long history of obstructive sleep apnea as likely cause -continue IV lasix for diuresis -no evidence of left sided heart failure 3. Hyponatremia, acute, resolved -patient presented volume overloaded, with diuresis hyponatremia improved -did receive lasix in ED -will continue lasix here and monitor sodium 4. Type 2 Diabetes with hypoglycemia -hold home oral meds -ordered for insulin sliding scale, check glucose achs, give lantus while here in hospital 5. Hypertension -restart carvedilol and losartan for elevated blood pressure 6. Abdominal pain -no evidence of any ascites -has questionable air next to diverticula, for now will treat with IV antibiotics for possible mild diverticulitis, treating with ceftriaxone and metronidazole -stop antibiotics as low suspicion for intraabdominal infection and likely bloated from obesity and fluid retention 7. Hepatomegaly -etiology is likely multifactorial from primarily obesity, alcohol abuse, and CHF 8. Alcohol abuse -CIWA prn, no evidence of withdrawal -encourage abstinence for alcohol as it will worsen ALYSA CODE: FULL PROXY: Coral DVT ppx: Lovevnox SC Quality VTE Deep Vein Thrombosis/Pulmonary Embolism Present on Admission: No
[2021-05-11] MEDS: INSULIN GLARGINE 100 UNIT/ML 3ML PEN SUBCUT (20:50)
[2021-05-11] MEDS: carvediloL 12.5 MG TABLET 25 MG PO (20:51)
[2021-05-11] MEDS: LOSARTAN 50 MG TABLET PO (20:52)
[2021-05-11] MEDS: AMLODIPINE 5 MG TABLET 10 MG PO (20:52)
--- NOTE | 2021-05-11 23:58 | PC.NURSE ---
Addendum entered by Shea Paniagua R.N. 05/12/21 06:25: 0600- Patient able to tolerate the new face mask most of the night. Continues to desaturate on the 5liters bleed in but less profoundly. He was noted to go down to 82% then drifts slowly up to target at 90% Will monitor. Original Note: 0000- New trilogy face mask arrived and patient tried it. Patient while awake saturates well with a 2liter bleed in. However when he drifts off to sleep he desaturates profoundly to the mid 60's 70's. Respiratory here to assess. Adjusted settings and increased bleed to 5liters. Will monitor.
[2021-05-12] VITALS (11 sets, daily range): BP systolic 144–167; BP diastolic 87–97; PULSE 81–99; RESP 16–116; TEMP 36.1–37.1; O2SAT 91–97
[2021-05-12 05:31] LABS: BUN Creatinine Ratio 19.7 (6-22); Blood Urea Nitrogen 13 mg/dL (9-20); Calcium 9.5 mg/dL (8.4-10.2); Chloride 92 mmol/L (98-107); Estimated Glomerular Filt Rate > 60.0 mL/min (>60); Glucose 125 mg/dL (70-100); HEMOLYSIS < 15 (0-50); Potassium 3.7 mmol/L (3.4-5.1); Sodium 136 mmol/L (137-145)
[2021-05-12 05:34] LABS: Hematocrit 43.1 % (41-53); Hemoglobin 12.8 g/dL (13.5-17.5); Mean Corpuscular HGB Conc 29.7 % (30-36); Mean Corpuscular Hemoglobin 22.1 PG (26-34); Mean Corpuscular Volume 74.3 fL (80-100); Platelet Count 174 X10^3/uL (150-400); Red Cell Distribution Width 23.2 % (11.6-14.8); White Blood Cell Count 9.3 X10^3/uL (4.5-11.0)
[2021-05-12 05:38] LABS: Carbon Dioxide 39 mmol/L (22-32)
[2021-05-12] MEDS: ALBUTEROL 2.5 MG/3 ML NEB (ADULT) INH ×2 (08:16→12:56)
[2021-05-12] MEDS: BUDESONIDE 0.5 MG/2 ML NEB INH (08:22)
[2021-05-12] MEDS: carvediloL 12.5 MG TABLET 25 MG PO (08:35)
[2021-05-12] MEDS: THIAMINE 100 MG TABLET PO (08:35)
[2021-05-12] MEDS: FUROSEMIDE 40 MG/4 ML VIAL IV (08:35)
[2021-05-12] MEDS: LOSARTAN 50 MG TABLET PO (08:35)
[2021-05-12] MEDS: ASPIRIN 325 MG TABLET PO (08:36)
[2021-05-12] MEDS: SODIUM CHLORIDE 0.9% FLUSH 10 ML IV (08:36)
[2021-05-12] MEDS: ENOXAPARIN 40 MG/0.4 ML SYRINGE SUBCUT (08:36)
[2021-05-12] MEDS: MULTIVITAMIN 1 TABLET 1 TAB PO (08:36)
[2021-05-12] MEDS: FOLIC ACID 1 MG TABLET PO (08:36)
--- NOTE | 2021-05-12 14:03 | CM.DPNOTE ---
DC Note DC home today w/spouse Coral, patient going home w/ O2, sleep study as outpatient, harshil, recommended. Patient failed trial of trilogy while admitted; Dr Castro has consulted Comp[employer] and recommendation is close outpatient f/u w/sleep center to determine needs and treatment options for patient. Patient and spouse eager to return home, spouse to check on sleep center appt availability Friday. Patient denies needs from this [employer] Home w/supportive family and close outpatient f/u recommended JW
--- NOTE | 2021-05-12 14:31 | PC.NURSE ---
1415 - RT set patient up with Home O2. O2 provider to arrive at patient's house at 1600. PICC line discontinued. Tele removed. Reviewed discharge education with patient and his spouse. Denies further questions. Discharged via wheelchair with 2L O2 via nasal cannula.
--- NOTE | 2021-05-13 15:54 | P.DS_ITS ---
History of Present Illness History of Present Illness Chief complaint: stomach having problems, bloated big time Narrative: Mr. Oreilly is a 45M with DM, HTN, asthma, ALYSA, morbid obesity with BMI of 55 who came in with complaints of having a bloated abdomen. Patient apparently has been having stomach bloating for months. He has noted worsening swelling all over per patient report. He has decreased urine output. His notes him to be sleepier than usual. He developed shortness of breath with the swelling in his abdomen. He has not vomited and his having bowel movements. He has not been having a progressive cough, no chest pain, no fevers, or chills. He has been noted to be morbidly obese, and presumptively thought to have ALYSA but he does not use a CPAP machine. In the ED, vitals were notable for hypoxemia with sats in the 80s. He was placed on oxygen. ABG was done which showed pH of 7.39 pCO2 of 65, pO2 of 48, hco3 of 40. He was started on high flow and planned to switch to BIPAP. WBC 10.1 Na 124, cO2 35, creatinine 0.90. Troponin negative. BNP 844. Chest xray showed possible infiltrate. CTA negative for PE. CT of his abdomen and pelvis showed enlarged liver with nodularity. He also had colonic diverticula with no inflammatory chagnes, but several possible foci of air. He was given IV antibiotics and admitted for further treatment. Patient denies any history of emphysema, or any history of CHF within his family. Discharge Providers Provider Date of admission: 05/08/21 12:22 Discharge Date: 05/12/21 Primary care physician: Gonzalez Britt MD Consults: 05/08/21 07:27 Consult to Respiratory Therapy Evaluate & Treat Comment: Physician Instructions: Evaluate and treat 05/09/21 20:31 Consult to Dietitian, Adult Routine Comment: Reason For Exam: EtOH, morbid obesity 05/11/21 09:45 Consult to Physical Therapy Evaluate & Treat Comment: Physician Instructions: Evaluate and Treat 05/12/21 12:21 Consult to Respiratory Therapy Evaluate & Treat Comment: rest and home 02 saturation Physician Instructions: Evaluate and treat Discharge provider: Steffanie Castro MD Summary Hospital Course Discharge Diagnosis: 1. Acute on chronic hypoxic hypercapnic respiratory failure, likely secondary to 2. Probable obstructive sleep apnea 3. Probable obesity hypoventilation 4. Morbid obesity 5. Hypertension 6. Type 2 diabetes 7. Gout 8. Acute right-sided congestive heart failure with preserved ejection fraction Hospital Course: Patient admitted to the hospital, for abdominal distension. He was ultimately found to have hypercapnic hypoxic respiratory failure. The patient was placed on BiPAP and had some improvement. However he became confused and this had to be adjusted. Patient was treated with IV insulin and became hypoglycemic for some time. This improved as well. The patient's abdominal bloating improved. Trilogy machine was delivered and attempted with the nasal mask. He became markedly hypoxic in the 60% range. He was placed back on BiPAP overnight. A face mask was attempted with a trilogy machine and again he remained hypoxic. Patient was treated with IV Lasix for congestive heart failure. Echocardiogram showed a preserved ejection fraction but de Sibley depressed right ventricular function. It was felt that the patient had right- sided heart failure. Patient responded to IV Lasix well. He did have improvement in his oxygenation during the day. Unfortunately the patient's oxygenation was not able to be managed with trilogy. Case was discussed with Pulmonary Critical [facility] at [facility]. They recommended discharging the patient home on oxygen 2 L during the day 4 L at night with plans for an i mmediate outpatient sleep study. Patient will need a definitive sleep study to accurately and appropriately titrate CPAP and/or BiPAP therapy. The patient improved significantly. He noted his diuresis had improved significantly. Although he did require oxygen he felt significantly better both in terms of abdominal discomfort as well as breathing. He was deemed appropriate for discharge. Home oxygen was arranged and the patient was counseled to follow-up with his PCP to arrange a outpatient sleep study as soon as possible. Patient was discharged home in satisfactory condition. Status at Discharge Cognitive/behavioral status at discharge: oriented Exam Vital Signs (past 8 hours): Fraction of Inspired Oxygen 45 Oxygen Delivery Method Nasal Cannula Oxygen Flow Rate 1 Narrative Exam Narrative: Pleasant obese gentleman in no obvious distress Lungs: Decreased breath sounds but clear to auscultation Cardiac exam: Regular rate and rhythm normal S1-S2 Abdomen: Obese soft and nontender Extremities: Trace edema Objective Labs Result Diagrams: 05/12/21 05:00 05/12/21 05:00 [facility] Medical History Acute anterior epistaxis Diabetes Fracture closed, nasal bone Hypertension Social History household members: spouse Smoking Status: Never smoker Discharge Assessment & Plan Assessment and Plan Assessment: 1. Acute on chronic hypoxic hypercapnic respiratory failure 2. Probable obstructive sleep apnea 3. Probable obesity hypoventilation syndrome 4. Acute right-sided heart failure 5. Morbid obesity 6. Hypertension 7. Type 2 diabetes Plan of Treatment: Discharge home with medications as prescribed Outpatient sleep study as soon as possible Follow-up with PCP next week Home oxygen as prescribed Discharge Plan Discharge Plan Patient Disposition: Home Discharge orders & Medications Prescriptions: Continued carvedilol [Coreg] 25 MG tablet 25 mg PO BID Qty: 0 RF: 0 amlodipine 10 MG tablet 10 mg PO HS Qty: 0 RF: 0 sildenafil [Viagra] 50 MG tablet 50 mg PO PRN PRN (Reason: other) Qty: 0 RF: 0 Januvia 100 MG tablet 100 mg PO QDAY Qty: 30 RF: 0 losartan 50 mg Tablet 50 mg PO BID RF: 0 aspirin 325 mg Tablet 325 mg PO DAILY RF: 0 glimepiride 2 mg Tablet 2 mg PO BID RF: 0 clonidine HCl 0.2 mg Tablet 0.2 mg PO BID RF: 0 magnesium 250 mg Tablet 500 mg PO DAILY RF: 0 furosemide 20 mg Tablet 40 mg PO QAM RF: 0 colchicine 0.6 mg Tablet 0.6 mg PO BID PRN (Reason: Gout) RF: 0 cholecalciferol (vitamin D3) [Vitamin D3] 50 mcg (2,000 unit) Tablet 50 mcg PO DAILY RF: 0 Medication counseling provided by Pharmacist: No Follow up/Referrals: Gonzalez Britt MD [Primary Care Provider] - Discharge Health Status Health Concerns: Patient has severe sleep apnea, obesity/hypoventilation. He needs an outpatient sleep study. He will be discharged on home o2 until sleep study obtained Multidrug resistant organism: No MDRO Diet/Activity/Treatments Diet: Low-sodium Oxygen: 2 liters during the day 4 liters at night Visit Report/Discharge Packet Instructions: Sleep Apnea, Home Oxygen Therapy, DI for Heart Failure Discharge Data Primary Care Provider: Gonzalez Britt Quality VTE Deep Vein Thrombosis/Pulmonary Embolism Present on Admission: No
== END 2021-05-12 14:30 | disposition home or self-care (01) | DRG 189 ==
LOC: ED 07:19 → AC 12:22 → ICU 05-09 11:10 → AC 05-09 15:00 → ICU 05-09 15:00
PROVIDERS: Nurse Practitioner Family; Admitting Provider Internal Medicine; Emergency Provider Emergency Medicine; PCP Internal Medicine; Referring Provider Emergency Medicine; Visit Provider Internal Medicine
DX: J96.21 Acute and chronic respiratory failure with hypoxia (principal); E66.2 Morbid (severe) obesity with alveolar hypoventilation; Z68.43 Body mass index [BMI] 50.0-59.9, adult; E87.1 Hypo-osmolality and hyponatremia; I10 Essential (primary) hypertension; I50.813 Acute on chronic right heart failure; E11.649 Type 2 diabetes mellitus with hypoglycemia without coma; E87.5 Hyperkalemia; J96.22 Acute and chronic respiratory failure with hypercapnia; M1A.9XX0 Chronic gout, unspecified, without tophus (tophi); Z79.84 Long term (current) use of oral hypoglycemic drugs; Z20.822 Contact with and (suspected) exposure to COVID-19
CPT/HCPCS: 36415; 36569; 36592; 36600; 51702; 71045; 71275; 74177; 80048; 80053; 80305; 81001; 81003; 82140; 82550; 82805; 82962; 83605; 83690; 83735; 83880; 84443; 84484; 85007; 85025; 85027; 85610; 87040; 87635; 87797; 93005; 94618; 94640; 94660; 94760; 94762; 96365; 96366; 96367; 96375; 97162; 99285; C9803; C8929; J0610; J0696; J1642; J1650; J1815; J1940; J2930; J7613; Q9957; Q9967